=== PATIENT | female | born 1970 | race Caucasian/White ===

== ENCOUNTER 2016-06-27 22:39 | Inpatient (IN) | payer OTHER ==
--- NOTE | ~2016-06-27 | PN ---
Unit #: [id number] #: [id number] Patient: EDILSON STAUFFER [id number] [facility] [address] [place] [address] [id number] I MR#: [id number] NAME: EDILSON STAUFFER. ROOM: P132 Age: 46 Sex: F Admission Date: 06/27/2016 : 1970 Attending Physician: Monique Eason M.D. Admitting Physician: Monique Eason M.D. Primary Care Physician: Melyssa Lord PROGRESS NOTES DATE 06/30/2016 DISCUSSION Ms. Stauffer is a 46-year-old who was seen today and chart was reviewed and case was discussed with the staff. She has been anxious, withdrawn, and rather seclusive to herself. Meanwhile, she has been cooperative with treatment recommendations and has been taking medications and tolerating them fairly well with no reported side effects. MENTAL STATUS EXAMINATION Middle-aged white female who was casually dressed with fair personal hygiene and appears to be in no acute distress or discomfort. She was awake and alert on interaction with intact orientation. Her mood was anxious with congruent affect. She denies any suicidal or homicidal ideations and also denies any auditory or visual hallucinations. Her insight and judgment remain slightly impaired. TREATMENT PLAN 1. We will continue on current medications and treatment protocol and will monitor her response and make further adjustments as needed. 2. We will continue to follow up. Dictated by... Melyssa Mclean/radha TD: 07/01/2016 12:23 JOB #: [id number] Unit #: [id number] #: [id number] Patient: EDILSON STAUFFER ALEJANDRA PROGRESS NOTES X Monique Eason MD X PROGRESS NOTE
--- NOTE | ~2016-06-27 | PN ---
Unit #: [id number] #: [id number] Patient: EDILSON ECHEVERRIA [id number] [facility] [address] [place] [address] [id number] I MR#: [id number] NAME: EDILSON ECHEVERRIA ROOM: P132 Age: 46 Sex: F Admission Date: 06/27/2016 : 1970 Attending Physician: Monique Eason M.D. Admitting Physician: Monique Eason M.D. Primary Care Physician: Melyssa Lord PROGRESS NOTES DATE OF SERVICE: 07/01/2016 SUBJECTIVE Ms. Paredes is a 45-year-old white female with mood disorder, who was seen today and chart was reviewed and the case was discussed with the staff. She has been anxious and withdrawn, though has not shown any agitation, irritability, or behavioral problems and has been cooperative with the treatment recommendations as she has been taking the medications and tolerating them fairly well with no reported side effects. MENTAL STATUS EXAMINATION Middle-aged white female, who was casually dressed with fair personal hygiene, appears to be in no acute distress or discomfort. She was awake and alert on interaction with intact orientation. Her mood was anxious with a congruent affect. She denies any suicidal or homicidal ideation. Her insight and judgment remain slightly impaired. TREATMENT PLAN 1. We will continue her on her current medications and treatment protocol. We will monitor her response and make further adjustments as needed. 2. We will continue to follow up. Dictated by... Melyssa Mclean/kay TD: 07/01/2016 15:04 JOB #: [id number] [facility] PROGRESS NOTES X Monique Eason MD PROGRESS NOTE
--- NOTE | ~2016-06-27 | PA ---
Unit #: [id number] #: [id number] Patient: EDILSON ECHEVERRIA [id number] [facility] [address] [place] [address] [id number] I MR#: [id number] NAME: EDILSON ECHEVERRIA ROOM: P132 Age: 46 Sex: F Admission Date: 06/27/2016 : 1970 Date of Assessment: 06/28/2016 Attending Physician: Monique Eason M.D. Admitting Physician: Monique Eason M.D. Primary Care Physician: Deng Manuel M.D. PSYCHIATRIC ASSESSMENT DATE OF SERVICE 06/28/2016. IDENTIFYING DATA Ms. Paredes is a 46-year-old white female, who is a resident of [place], [place], and was transferred to from [facility]. CHIEF COMPLAINT "My drove me this time, I'm fighting, taking my pills." HISTORY OF PRESENT ILLNESS A 46-year-old white female, who was transferred to us from [facility], where she was taken by her . The patient stated that she has been fighting, taking her pills, "last night, I took a box in overdose, 10 pills and the night before, I took 10 of Benadryl, I just wanted to relax in peace and a break from migraines. I did not want to kill myself." She was denying any suicidal ideations and then stated "I just want peace. I take Xanax for migraines for 5 years, on disability. I have seen a [place] [facility]ist and they could no longer treat me. I went to a migraine specialist in [place] and I was told that I have to live with my illness." She does report increasing depression, anxiety, irritability, restlessness, feelings of hopelessness and helplessness, and suicidal ideations. SUBSTANCE ABUSE HISTORY The patient denies any alcohol or drug abuse, though she has been abusing her prescription medications. PAST PSYCHIATRIC HISTORY The patient has done outpatient treatment at [facility] in the past. Review of the medical records indicate that currently she is not active in any treatment program, though she is supposed to see Dr. Torres. She is taking different psychotropic medications at this time. PAST MEDICAL HISTORY Hypertension and migraine headaches. ALLERGIES No known medication allergies. PERSONAL AND SOCIAL HISTORY A 56-year-old white female, who reports that she is and lives at home with her and has fairly decent social support system. Unit #: [id number] #: [id number] Patient: EDILSON ECHEVERRIA MENTAL STATUS EXAMINATION Middle-aged white female, who was casually dressed with fair personal hygiene, appears to be in no acute distress or discomfort. She was awake and alert on interaction with intact orientation to time, place, and person. Her mood was anxious and depressed with a congruent affect. Her speech was slow and restricted in content. Her thought processes were disorganized with some looseness of associations and flight of ideas. Her insight and judgment remain significantly impaired. DIAGNOSTIC IMPRESSION Psychiatric: Major depressive disorder, recurrent, moderate, without psychotic features. Medical: Migraine headaches and seizure disorder. Stressors: Moderate psychosocial stressors. TREATMENT PLAN 1. The patient has presented with a history of mood disorder and has been decompensating. We will recommend inpatient hospitalization for safety and stabilization. We will start her back on her home medications and we will adjust the medications and monitor response. 2. Supportive therapy was provided to the patient. 3. Safe, structured, and nourishing environment will be provided. ESTIMATED LENGTH OF STAY 5 to 7 days. ABILITY TO HELP SELF Limited. WILLINGNESS TO HELP SELF The patient appears to be willing to help self. STRENGTHS 1. Communicative. 2. Cooperative. PROBLEMS 1. Chronic dysphoric symptoms. 2. Poor social support system. DISCHARGE CRITERIA This will be contingent upon the patient's ability to show resolution of her depression and anxiety and her ability to stay safe to herself, particularly after discharge from the hospital. Dictated by... Melyssa Mclean/kay TD: 06/28/2016 14:22 JOB #: [id number] Unit #: [id number] #: [id number] Patient: EDILSON ECHEVERRIA PSYCHIATRIC ASSESSMENT X Monique Eason MD PSYCHIATRIC ASSESSMENT
--- NOTE | ~2016-06-27 | DS ---
Unit #: [id number] #: [id number] Patient: EDILSON ECHEVERRIA [id number] [facility] [address] [place] [address] [id number] I MR#: [id number] NAME: EDILSON ECHEVERRIA. ROOM: 32 Age: 46 Sex: F Admission Date: 06/27/2016 : 1970 Discharge Date: 07/03/2016 Attending Physician: Monique Eason M.D. Primary Care Physician: Deng Manuel M.D. DISCHARGE SUMMARY IDENTIFYING DATA Ms. Paredes is a 46-year-old white female, who is a resident of [place], [place], and was transferred to us from [facility]. DISCHARGE DIAGNOSES Psychiatric: Major depressive disorder, recurrent, moderate, without psychotic features. Medical: Migraine headache, seizure disorder. Stressors: Moderate psychosocial stressors. HISTORY OF PRESENT ILLNESS Please see initial psychiatric evaluation for details. PAST PSYCHIATRIC HISTORY Please see initial psychiatric evaluation for details. PAST MEDICAL HISTORY Please see initial psychiatric evaluation for details. HOSPITAL COURSE The patient was [facility] and was oriented to the hospital environment. Routine p.r.n. medications were initiated, and she was started back on her home medications and medications were adjusted and Effexor and Seroquel were initiated to help with depression and she was closely monitored. She was polite and pleasant, compliant with the treatment recommendations and was taking the medications regularly and was tolerating them fairly well and was able to show a decent and therapeutic response and was willing to continue treatment on an outpatient basis and as such, it was decided that she will be discharged home and will continue treatment on an outpatient basis. DISCHARGE MEDICATIONS Seroquel 50 mg at bedtime for mood disorder and Effexor XR 150 mg at bedtime for depression. DISCHARGE CONDITION Stable. PROGNOSIS Fair. Dictated by... Unit #: [id number] #: [id number] Patient: EDILSON ECHEVERRIA Monique Eason M.D. IAA/modl TD: 07/03/2016 07:12 JOB #: [id number] DISCHARGE SUMMARY X Monique Eason MD DISCHARGE SUMMARY
--- NOTE | ~2016-06-27 | HP ---
Unit #: [id number] #: [id number] Patient: EDILSON ECHEVERRIA [id number] [place] [address] [id number] I MR#: [id number] NAME: EDILSON ECHEVERRIA. ROOM: P132 Age: 46 Sex: F Admission Date: 06/27/2016 : 1970 Attending Physician: Monique Eason M.D. Admitting Physician: Monique Eason M.D. Primary Care Physician: Deng Manuel M.D. HISTORY AND PHYSICAL HISTORY OF PRESENT ILLNESS Edilson is a 46 year old admitted to [address] [place] [address] with depression and after an overdose of Robaxin. PAST MEDICAL HISTORY 1. Obesity. 2. History of migraine headaches. 3. High blood pressure. PAST SURGICAL HISTORY 1. Cholecystectomy. 2. T and A. 3. Total abdominal hysterectomy. 4. Right arthroscopic knee. 5. Jaw surgery for severe TMJ. ALLERGIES Imitrex, Avelox, penicillin, hydrocodone, oxycodone, Medrol, tetracycline, erythromycin, Cipro, Thorazine, magnesium. SOCIAL HISTORY She does not smoke. Drinks alcohol rarely and denies illicit drug use. FAMILY HISTORY Medically noncontributory. REVIEW OF SYSTEMS CONSTITUTIONAL: No fever or chills. HEENT: Denies any sore throat, ear pain or runny nose. CARDIOVASCULAR: Denies chest pain, irregular heart rhythm or palpitations. CHEST: Denies shortness of breath or cough. No hemoptysis. GASTROINTESTINAL: Denies nausea, vomiting, diarrhea or chronic constipation. ENDOCRINE: Denies history of increased thirst or urination. No recent significant weight loss or gain. GENITOURINARY: Denies dysuria, frequency, or hematuria. SKIN: Denies any rashes. HEMATOLOGIC: Denies history of increased bleeding or bruising. MUSCULOSKELETAL: Denies any hot, swollen joints. No generalized muscle pain. NEUROLOGIC: Denies problems with vision or speech. No frequent, severe headaches. No numbness, tingling or weakness in any extremities. Denies loss of bladder or bowel control. Unit #: [id number] #: [id number] Patient: EDILSON ECHEVERRIA CURRENT MEDICATIONS 1. Aspirin 325 mg 1 daily. 2. HCTZ 12.5 mg daily. 3. Ferrous gluconate 324 one daily. 4. Lotensin 10 mg daily. 5. Seroquel 50 mg q.h.s. 6. Effexor XR 150 mg q.h.s. 7. Nadolol 40 mg b.i.d. 8. Zanaflex 2 mg t.i.d. 9. Klonopin 1 mg t.i.d. 10. Toradol p.r.n. 11. Estrace 1 mg b.i.d. PHYSICAL EXAMINATION GENERAL: Alert, obese, in no apparent distress. VITAL SIGNS: Blood pressure 138/102, heart rate 80, respirations 16, temperature 98.6. WEIGHT: 228. HEIGHT: 5 feet 1 inch. SKIN: Warm and dry without rash or lesion. HEENT: Normocephalic. TMs not viewed. Oral and nasal passages clear. Conjunctivae clear. PERRLA. EOMs intact. NECK: Supple without lymphadenopathy or thyromegaly. HEART: Regular rate and rhythm without murmur. LUNGS: Clear. ABDOMEN: Soft, nontender. : Not done. EXTREMITIES: No evidence of cyanosis, clubbing or edema. Moves all without focal deficit. NEUROLOGICAL: Grossly within normal limits. Cranial Nerves: II: Visual duong are intact. III, IV AND : Extraocular movements are intact. Pupils are equal, round and reactive to light. V: Facial sensation is grossly normal. VII: Facial movements and expression are normal. VIII: Auditory acuity grossly intact. IX, X: Uvula is midline. Phonation is normal. XI: Patient shrugs shoulders and turns head normally. XII: Tongue protrudes in the midline. Sensory and Motor Function: Sensory and motor sensation is grossly normal. Motor: moves all extremities well. Coordination: Gait is normal. Deep Tendon Reflexes: Intact. IMPRESSION 1. Psychiatric admission. 2. High blood pressure, not controlled on admission. RECOMMENDATIONS PSYCHIATRIC: Per psychiatrist. MEDICAL: 1. See no contraindications to participate in facility's activities. 2. Continue blood pressure medications. Continue to monitor blood pressures. MEDICAL PROGNOSIS Good. MEDICAL CONDITION Unit #: [id number] #: [id number] Patient: EDILSON ECHEVERRIA. Dictated by... Sydney Euceda P.A.-C. for Melyssa Ash/farhat TD: 06/28/2016 18:55 JOB #: [id number] HISTORY AND PHYSICAL X Sydney Euceda HISTORY AND PHYSICAL
--- NOTE | ~2016-06-27 | PN ---
Unit #: [id number] #: [id number] Patient: EDILSON STAUFFER [id number] [facility] [address] [place] [address] [id number] I MR#: [id number] NAME: EDILSON STAUFFER. ROOM: P132 Age: 46 Sex: F Admission Date: 06/27/2016 : 1970 Attending Physician: Monique Eason M.D. Admitting Physician: Monique Eason M.D. Primary Care Physician: Melyssa Lord PROGRESS NOTES DATE 06/29/2016 DISCUSSION Ms. Stauffer is a 46-year-old white female with mood disorder who was seen today and chart was reviewed and case was discussed with the staff. She has been anxious, withdrawn, depressed and rather seclusive to herself. Meanwhile, she has been cooperative with treatment recommendations and has been taking medications and tolerating them fairly well with no reported side effects. MENTAL STATUS EXAMINATION Middle-aged white female who was casually dressed with fair personal hygiene and appears to be in no acute distress or discomfort. She was awake and alert on interaction with intact orientation. Her mood was anxious and depressed with congruent affect. Her speech is slow and goal-directed. She denies any suicidal or homicidal ideations and also denies any auditory or visual hallucinations. Her insight and judgement remain slightly impaired. TREATMENT PLAN 1. Will continue on current medications and treatment protocol and will monitor her response and make further adjustments as needed. 2. Will continue to follow up. Dictated by... Melyssa Mclean/farhat TD: 06/30/2016 13:34 JOB #: [id number] Unit #: [id number] #: [id number] Patient: EDILSON STAUFFER ALEJANDRA PROGRESS NOTES X Monique Eason MD PROGRESS NOTE
--- NOTE | ~2016-06-27 | PN ---
Unit #: [id number] #: [id number] Patient: EDILSON STAUFFER [id number] [facility] [address] [place] [address] [id number] I MR#: [id number] NAME: EDILSON STAUFFER. ROOM: P132 Age: 46 Sex: F Admission Date: 06/27/2016 : 1970 Attending Physician: Monique Eason M.D. Admitting Physician: Monique Eason M.D. Primary Care Physician: Melyssa Lord PROGRESS NOTES DATE July 02, 2016 DISCUSSION Ms. Stauffer is a 46-year-old white female, who was seen today and chart was reviewed and the case was discussed with the staff. The patient has been anxious, withdrawn, and seclusive to herself. Meanwhile, she has been cooperative with the treatment recommendations and she has been taking the medications and tolerating them fairly well. MENTAL STATUS EXAMINATION Middle-aged white female, who was casually dressed with fair personal hygiene and appears to be in no acute distress or discomfort. She was awake and alert on interaction with intact orientation. Her mood was anxious with a congruent affect. The patient denies any suicidal or homicidal ideations. Her insight and judgment remain slightly impaired. TREATMENT PLAN 1. We will continue her on her current medications and treatment protocol, and will monitor her response to the medications, and make further adjustments as needed. 2. We will continue to followup. Dictated by... Melyssa Mclean/flori TD: 07/03/2016 06:55 JOB #: [id number] Unit #: [id number] #: [id number] Patient: EDILSON STAUFFER ALEJANDRA PROGRESS NOTES X Monique Eason MD X PROGRESS NOTE
[~2016-06-27 22:39] MED LIST: ALLEGRA PO; AMLODIPINE BESYL5 MG PO; ANTIVERT PO; ASPIRIN PO; CALCIUM 250+D T1 TAB PO; CALCIUM 500 + D1 TAB PO; CELEXA PO; CYMBALTA30 MG PO; ESTRACE PO; ESTRACE2 MG PO; FISH OIL 1,0001 CAP PO; GYNODIOL1 MG PO; LEXAPRO20 MG PO; LIPITOR40 MG PO; LISINOPRIL PO; LOTENSIN20 MG PO; MAXALT MLT10 MG/TAB PO; METAMUCIL1 PKT PO; MOTION SICKNESS25 M4 PO; MUCINEX DM1 TAB.SR . PO; MULTI-VITAMIN1 TAB PO; NORVASC PO; PERCOCET 7.5-31 EACH PO; PHENERGAN PO; PRILOSEC PO; TALWIN NX TABLE1 TAB PO; TYLOX1 CAP 5/50 PO; VIT E PO
[2016-06-28 09:49] LABS: BASOPHIL% 0.5 % (0-2.5); EOSINOPHIL# 0.7 X10e3 (0-0.7); EOSINOPHIL% 6.9 % (0.0-7.0); HEMATOCRIT 36.3 % (35.0-45.0); HEMOGLOBIN 11.9 gm/dL (12.0-16.0); LYMPHOCYTE# 3.9 X10e3 (1.0-3.5); LYMPHOCYTE% 38.9 % (17.0-45.0); MEAN CELL VOLUME 84.1 FL (83-96); MEAN CORPUSCULAR HEMOGLOBIN 27.7 PG (28-34); MEAN CORPUSCULAR HGB CONC 32.9 g/dL (30-36); MEAN PLATELET VOLUME 8.4 FL (6.5-11.5); MONOCYTE# 0.6 X10e3 (0-1.0); MONOCYTE% 6.5 % (3.0-12.0); NEUTROPHIL# 4.7 X10e3 (1.5-7.1); NEUTROPHIL% 47.2 % (40-75); PLATELET COUNT 290 X10e3 (140-420); RED BLOOD COUNT 4.32 X10e (3.90-5.30); RED CELL DISTRIBUTION WIDTH 14.9 % (11.0-15.5); WHITE BLOOD COUNT 9.9 X10e3 (4.0-10.5)
[2016-06-28 09:57] LABS: DIFF IND NO
[2016-06-28 10:09] LABS: ALBUMIN SERUM 3.6 g/dL (3.5-5.0); ALKALINE PHOSPHATASE 83 U/L (32-92); ALT (SGPT) 28 U/L (10-40); AST (SGOT) 28 U/L (10-42); BILIRUBIN,TOTAL 0.1 mg/dL (0.2-2.0); BLOOD UREA NITROGEN 17 mg/dL (9-23); BUN/CREATININE RATIO 24.28; CALCIUM SERUM 9.4 mg/dL (8.4-10.2); CARBON DIOXIDE 24 mmol/L (22-31); CHLORIDE 100 mmol/L (100-111); CREATININE SERUM 0.7 mg/dL (0.6-1.4); GLOM FILT RATE Estimated ABOVE60 mL/min (>60); GLUCOSE FASTING 109 mg/dL (70-110); POTASSIUM 4.3 mmol/L (3.5-5.1); PROTEIN TOTAL SERUM 7.3 g/dL (6.0-8.3); SODIUM 134 mmol/L (135-145)
== END 2016-07-03 11:42 | disposition home or self-care (01) | DRG 885 ==
LOC: P1S 22:39 → POF 07-02 14:24 → P1S 07-02 14:26
PROVIDERS: Psychiatry & Neurology Psychiatry
DX: F33.1 Major depressive disorder, recurrent, moderate (principal); G40.909 Epilepsy, unspecified, not intractable, without status epilepticus; I10 Essential (primary) hypertension; G43.909 Migraine, unspecified, not intractable, without status migrainosus; F41.9 Anxiety disorder, unspecified; E66.9 Obesity, unspecified; Z88.6 Allergy status to analgesic agent; Z88.0 Allergy status to penicillin; Z88.5 Allergy status to narcotic agent; Z88.1 Allergy status to other antibiotic agents; Z88.8 Allergy status to other drugs, medicaments and biological substances
CPT/HCPCS: 80053; 85025

== ENCOUNTER 2016-08-03 16:55 | Emergency (ER) | payer OTHER ==
[~2016-08-03 16:55] MED LIST changes: -CLIMARA 0.1 MG0.1 MG PO; -COQ-1010 MG PO; -DIVALPROEX SOD500 M1 IV; -EFFEXOR PO; -ESTRACE1 M1 PO; -FERRO-TIME325 MG PO; -HYDROCHLOROTH12.5 M1 PO; -IRON325 MG PO; -KETOROLAC15 MG/1 ML; -KLONOPIN1 M1 PO; -KLONOPIN1 MG PO; -LEVETIRACETAM500 M1 IV; -MAGNESIUM OXID200 MG PO; -MAGNESIUM27 MG PO; -MULTIVITAMINS1 EAC3 PO; -NADOLOL40 MG PO; -OXCARBAZEPINE150 M1 PO; -PANTOPRAZOLE SO40 MG PO; -PATIENT'S PHARMACY; -ROBAXIN PO; -ROBAXIN500 MG PO; -SEROQUEL50 M1 PO; -VENLAFAXINE HC150 MG PO; -VITAMIN B122500 MCG PO; -ZANAFLEX PO
== END 2016-08-03 20:15 | disposition home or self-care (01) ==
LOC: CED 16:55
DX: G43.909 Migraine, unspecified, not intractable, without status migrainosus (principal); G89.29 Other chronic pain; I10 Essential (primary) hypertension; Z90.49 Acquired absence of other specified parts of digestive tract; Z90.710 Acquired absence of both cervix and uterus
CPT/HCPCS: 82947; 96361; 96374; 96375; 99284; J0780; J1170; J1200; J1885

== ENCOUNTER → 2016-08-03 | Outpatient (CLI) | payer OTHER ==
[~2016-08-03] MED LIST changes: +CLIMARA 0.1 MG0.1 MG PO; +COQ-1010 MG PO; +DIVALPROEX SOD500 M1 IV; +EFFEXOR PO; +ESTRACE1 M1 PO; +FERRO-TIME325 MG PO; +HYDROCHLOROTH12.5 M1 PO; +IRON325 MG PO; +KETOROLAC15 MG/1 ML; +KLONOPIN1 M1 PO; +KLONOPIN1 MG PO; +LEVETIRACETAM500 M1 IV; +MAGNESIUM OXID200 MG PO; +MAGNESIUM27 MG PO; +MULTIVITAMINS1 EAC3 PO; +NADOLOL40 MG PO; +OXCARBAZEPINE150 M1 PO; +PANTOPRAZOLE SO40 MG PO; +PATIENT'S PHARMACY; +ROBAXIN PO; +ROBAXIN500 MG PO; +SEROQUEL50 M1 PO; +VENLAFAXINE HC150 MG PO; +VITAMIN B122500 MCG PO; +ZANAFLEX PO
== END | disposition home or self-care (01) ==
LOC: CSSDAY 15:12
PROC: 3C1ZX8Z Irrigation of Indwelling Device using Irrigating Substance, External Approach (ICD-10-PCS; principal; 2016-08-03)
DX: Z45.2 Encounter for adjustment and management of vascular access device (principal)

== ENCOUNTER 2016-08-08 16:51 | Emergency (ER) | payer OTHER ==
--- NOTE | ~2016-08-08 | EKG ---
PATIENT: EDILSON ECHEVERRIA UNIT #: [id number] Ventricular Rate: 55 BPM Atrial Rate: 55 BPM P-R Interval: 130 ms QRS Duration: 86 ms Q-T Interval: 450 ms QTC Calculation(Bezet): 430 ms P [place]: 10 degrees Calculated R [place]: 48 degrees Calculated T [place]: 59 degrees Diagnosis Line: Sinus bradycardia Diagnosis Line: Otherwise normal ECG Diagnosis Line: When compared with ECG of 05-AUG-2011 07:13, Diagnosis Line: No significant change was found Diagnosis Line: Confirmed by BENNETT JARRELL MD ([id number]) on 08/09/2016 Diagnosis Line: 5:02:40 AM INTERPRETING MD: WESLY MOLINA
[2016-08-08 15:47] LABS: URINE SOURCE CLEAN CATCH
[2016-08-08 15:51] LABS: URINE APPEARANCE CLEAR; URINE BILIRUBIN NEG (NEG); URINE BLOOD NEG (NEG); URINE COLOR YELLOW; URINE GLUCOSE NEG (NEG); URINE KETONE TRACE (NEG); URINE LEUKOCYTE ESTERASE NEG (NEG); URINE NITRATE NEG (NEG); URINE PROTEIN NEG (NEG); URINE SPECIFIC GRAVITY 1.016 (1.003-1.035)
[2016-08-08 16:01] LABS: BASOPHIL% 0.5 % (0-2.5); EOSINOPHIL# 0.9 X10e3 (0-0.7); EOSINOPHIL% 9.7 % (0.0-7.0); HEMATOCRIT 32.9 % (35.0-45.0); HEMOGLOBIN 10.9 gm/dL (12.0-16.0); LYMPHOCYTE# 3.7 X10e3 (1.0-3.5); LYMPHOCYTE% 39.2 % (17.0-45.0); MEAN CELL VOLUME 83.8 FL (83-96); MEAN CORPUSCULAR HEMOGLOBIN 27.7 PG (28-34); MEAN CORPUSCULAR HGB CONC 33.1 g/dL (30-36); MEAN PLATELET VOLUME 8.1 FL (6.5-11.5); MONOCYTE# 0.7 X10e3 (0-1.0); MONOCYTE% 6.8 % (3.0-12.0); NEUTROPHIL# 4.2 X10e3 (1.5-7.1); NEUTROPHIL% 43.8 % (40-75); PLATELET COUNT 241 X10e3 (140-420); RED BLOOD COUNT 3.93 X10e (3.90-5.30); RED CELL DISTRIBUTION WIDTH 14.7 % (11.0-15.5); WHITE BLOOD COUNT 9.6 X10e3 (4.0-10.5)
[2016-08-08 16:06] LABS: POC - CKMB <1.0 ng/mL (0.0-7.9); POC - TROPONIN <0.05 ng/mL (<=0.05)
[2016-08-08 16:09] LABS: DIFF IND NO
[2016-08-08 16:19] LABS: CULTURE INDICATED? NO
[2016-08-08 16:23] LABS: CALCIUM SERUM 8.8 mg/dL (8.4-10.2); POTASSIUM 3.6 mmol/L (3.5-5.1)
== END 2016-08-08 18:18 | disposition home or self-care (01) ==
LOC: CED 16:51
PROVIDERS: Emergency Medicine
DX: G43.909 Migraine, unspecified, not intractable, without status migrainosus (principal); I10 Essential (primary) hypertension; Z86.73 Personal history of transient ischemic attack (TIA), and cerebral infarction without residual deficits; Z90.710 Acquired absence of both cervix and uterus; Z90.49 Acquired absence of other specified parts of digestive tract; Z88.0 Allergy status to penicillin; Z88.1 Allergy status to other antibiotic agents; Z88.5 Allergy status to narcotic agent; Z88.8 Allergy status to other drugs, medicaments and biological substances
CPT/HCPCS: 36415; 80048; 81003; 82553; 84484; 84703; 85025; 93005; 96361; 96374; 96375; 99284; J0595; J0780; J1200; J1885

== ENCOUNTER 2016-08-09 17:24 | Emergency (ER) | payer OTHER ==
--- NOTE | ~2016-08-09 | CR230 ---
[facility] A Service of [facility] RADIOLOGY TEXT RESULTS PATIENT: EDILSON ECHEVERRIA LOCATION: [facility] : 72 UNIT #: [id number] AGE: [address]: Martha Terrazas MD SEX: F ORDER DR: [id number] [facility] [address] [place], [place] [address] [id number] E MR#: [id number] Acc #: [id number] NAME: EDILSON ECHEVERRIA. : 1970 SEX: F STUDY DATE/TIME: 08/09/2016 17:52 UNIT: [facility] ROOM: STUDY DESCRIPTION: CR Shoulder Min 2 View Rt Attending Physician: Martha Terrazas M.D. Referring Physician: Deng Manuel M.D. Ordering Physician: Martha Terrazas M.D. Primary Care Physician: Deng Manuel M.D. MEDICAL IMAGING REPORT This report is preliminary unless electronic signature is present EXAM 3 views of the right shoulder INDICATIONS Pain after a fall today FINDINGS AP view with internal and external rotation of the shoulder girdle shows satisfactory relationship of the humeral head and glenoid fossa. The joint space is normal. There is no identifiable fracture or dislocation or bony destructive process about the shoulder girdle anatomy. The acromioclavicular joint is normal. There is no radiopaque foreign body in the region. IMPRESSION Normal shoulder. Dictated by... Chary Mobley M.D. THIS IS AN ELECTRONICALLY VERIFIED REPORT Chary Mobley M.D. at 08/10/2016 4:40 PM AFF/to TD: 08/09/2016 19:26 JOB #: [id number] MEDICAL IMAGING REPORT Page 1 of 1 COPY
--- NOTE | ~2016-08-09 | CR71 ---
[facility] A Service of [facility] RADIOLOGY TEXT RESULTS PATIENT: EDILSON ECHEVERRIA LOCATION: [facility] : 72 UNIT #: [id number] AGE: [address]: Martha Terrazas MD SEX: F ORDER DR: [id number] [facility] [address] [place], [place] [address] [id number] E MR#: [id number] Acc #: [id number] NAME: EDILSON ECHEVERRIA. : 1970 SEX: F STUDY DATE/TIME: 08/09/2016 17:50 UNIT: [facility] ROOM: STUDY DESCRIPTION: CR Chest Single View Attending Physician: Martha Terrazas M.D. Referring Physician: Deng Manuel M.D. Ordering Physician: Martha Terrazas M.D. Primary Care Physician: Deng Manuel M.D. MEDICAL IMAGING REPORT This report is preliminary unless electronic signature is present EXAM Portable chest radiograph INDICATIONS Syncope, dizziness and pain after a fall today FINDINGS Right internal jugular vein MediPort is seen extending into the superior vena cava. Heart size is within normal limits for portable technique. No pneumothorax or pleural effusion is identified. Patient does have some elevation of the right hemidiaphragm with some associated bronchovascular crowding which is stable when compared to April 2014. No definite acute infiltrates are seen Dictated by... Chary Mobley M.D. THIS IS AN ELECTRONICALLY VERIFIED REPORT Chary Mobley M.D. at 08/10/2016 4:41 PM AFF/to TD: 08/09/2016 19:23 JOB #: [id number] MEDICAL IMAGING REPORT Page 1 of 1 COPY
--- NOTE | ~2016-08-09 | CR151 ---
[facility] A Service of [facility] RADIOLOGY TEXT RESULTS PATIENT: EDILSON ECHEVERRIA LOCATION: [facility] : 72 UNIT #: [id number] AGE: [address]: Martha Terrazas MD SEX: F ORDER DR: [id number] [facility] [address] [place], [place] [address] [id number] MR#: [id number] Acc #: [id number] NAME: EDILSON ECHEVERRIA. : 1970 SEX: F STUDY DATE/TIME: 08/09/2016 17:56 UNIT: [facility] ROOM: STUDY DESCRIPTION: CR Hip Min 2 Views Rt Attending Physician: Martha Terrazas M.D. Referring Physician: Deng Manuel M.D. Ordering Physician: Martha Terrazas M.D. Primary Care Physician: Deng Manuel M.D. MEDICAL IMAGING REPORT This report is preliminary unless electronic signature is present EXAM 2 views right hip. INDICATION Pain after a fall today. FINDINGS No acute fracture or subluxation of the right hip is identified. No aggressive osseous abnormalities are seen. Patient does have some degenerative changes involving sacroiliac joints bilaterally. IMPRESSION No acute fracture or subluxation identified. Dictated by... Chary Mobley M.D. THIS IS AN ELECTRONICALLY VERIFIED REPORT Chary Mobley M.D. at 08/10/2016 4:41 PM AFF/js TD: 08/09/2016 19:26 JOB #: [id number] MEDICAL IMAGING REPORT Page 1 of 1 COPY
== END 2016-08-09 19:10 | disposition home or self-care (01) ==
LOC: CED 17:24
DX: G89.29 Other chronic pain (principal); I10 Essential (primary) hypertension; R51 Headache; Z76.5 Malingerer [conscious simulation]; Z88.8 Allergy status to other drugs, medicaments and biological substances; Z88.0 Allergy status to penicillin; Z88.5 Allergy status to narcotic agent; Z88.1 Allergy status to other antibiotic agents
CPT/HCPCS: 71010; 73030; 73502; 99284

== ENCOUNTER 2016-08-15 19:31 | Emergency (ER) | payer OTHER ==
--- NOTE | ~2016-08-15 | EKG ---
PATIENT: EDILSON ECHEVERRIA UNIT #: [id number] Ventricular Rate: 66 BPM Atrial Rate: 66 BPM P-R Interval: 140 ms QRS Duration: 92 ms Q-T Interval: 416 ms QTC Calculation(Bezet): 436 ms P [place]: -12 degrees Calculated R [place]: 32 degrees Calculated T [place]: 54 degrees Diagnosis Line: Normal sinus rhythm Diagnosis Line: Nonspecific T wave abnormality Diagnosis Line: Abnormal ECG Diagnosis Line: When compared with ECG of 08-AUG-2016 15:22, Diagnosis Line: Inverted T waves have replaced nonspecific T wave Diagnosis Line: abnormality in Anterior leads Diagnosis Line: Confirmed by BENNETT JARRELL MD ([id number]) on 08/15/2016 Diagnosis Line: 10:50:19 PM INTERPRETING MD: WESLY MOLINA
[2016-08-15 19:52] LABS: POC - CKMB <1.0 ng/mL (0.0-7.9); POC - TROPONIN <0.05 ng/mL (<=0.05)
[2016-08-15 19:57] LABS: BASOPHIL# 0.1 X10e3 (0-0.3); BASOPHIL% 0.5 % (0-2.5); EOSINOPHIL# 0.5 X10e3 (0-0.7); EOSINOPHIL% 4.6 % (0.0-7.0); HEMATOCRIT 32.7 % (35.0-45.0); HEMOGLOBIN 10.8 gm/dL (12.0-16.0); LYMPHOCYTE# 4.1 X10e3 (1.0-3.5); LYMPHOCYTE% 36.2 % (17.0-45.0); MEAN CELL VOLUME 84.3 FL (83-96); MEAN CORPUSCULAR HEMOGLOBIN 27.7 PG (28-34); MEAN CORPUSCULAR HGB CONC 32.9 g/dL (30-36); MEAN PLATELET VOLUME 7.6 FL (6.5-11.5); MONOCYTE# 1.1 X10e3 (0-1.0); NEUTROPHIL# 5.5 X10e3 (1.5-7.1); NEUTROPHIL% 48.7 % (40-75); PLATELET COUNT 272 X10e3 (140-420); RED BLOOD COUNT 3.88 X10e (3.90-5.30); RED CELL DISTRIBUTION WIDTH 14.8 % (11.0-15.5); WHITE BLOOD COUNT 11.3 X10e3 (4.0-10.5)
[2016-08-15 19:58] LABS: DIFF IND NO
[2016-08-15 20:14] LABS: ALBUMIN SERUM 3.1 g/dL (3.5-5.0); ALKALINE PHOSPHATASE 63 U/L (32-92); ALT (SGPT) 16 U/L (10-40); AST (SGOT) 17 U/L (10-42); BILIRUBIN,TOTAL 0.2 mg/dL (0.2-2.0); BLOOD UREA NITROGEN 16 mg/dL (9-23); CARBON DIOXIDE 26 mmol/L (22-31); CHLORIDE 105 mmol/L (100-111); CREATININE SERUM 0.8 mg/dL (0.6-1.4); GLOM FILT RATE Estimated 89.1 mL/min (>60); GLUCOSE FASTING 108 mg/dL (70-110); POTASSIUM 3.6 mmol/L (3.5-5.1); PROTEIN TOTAL SERUM 6.5 g/dL (6.0-8.3); SODIUM 138 mmol/L (135-145)
[2016-08-15 20:17] LABS: BILIRUBIN, DIRECT <0.1 mg/dL (0.0-0.2); BILIRUBIN,INDIRECT 0.1 mg/dL (0.0-0.9)
[2016-08-15 21:37] LABS: POC - CKMB <1.0 ng/mL (0.0-7.9); POC - TROPONIN <0.05 ng/mL (<=0.05)
== END 2016-08-15 22:13 | disposition home or self-care (01) ==
LOC: CED 19:31
PROVIDERS: Emergency Medicine
DX: I10 Essential (primary) hypertension (principal); R07.9 Chest pain, unspecified; G43.909 Migraine, unspecified, not intractable, without status migrainosus; Z88.0 Allergy status to penicillin; Z88.8 Allergy status to other drugs, medicaments and biological substances
CPT/HCPCS: 80048; 80076; 82553; 84484; 85025; 93005; 96374; 96375; 99284; J0780; J1200; J1885

== ENCOUNTER → 2016-08-16 | Outpatient (CLI) | payer OTHER ==
[~2016-08-16] MED LIST changes: +CLIMARA 0.1 MG0.1 MG PO; +COQ-1010 MG PO; +DIVALPROEX SOD500 M1 IV; +EFFEXOR PO; +ESTRACE1 M1 PO; +FERRO-TIME325 MG PO; +HYDROCHLOROTH12.5 M1 PO; +IRON325 MG PO; +KETOROLAC15 MG/1 ML; +KLONOPIN1 M1 PO; +KLONOPIN1 MG PO; +LEVETIRACETAM500 M1 IV; +MAGNESIUM OXID200 MG PO; +MAGNESIUM27 MG PO; +MULTIVITAMINS1 EAC3 PO; +NADOLOL40 MG PO; +OXCARBAZEPINE150 M1 PO; +PANTOPRAZOLE SO40 MG PO; +PATIENT'S PHARMACY; +ROBAXIN PO; +ROBAXIN500 MG PO; +SEROQUEL50 M1 PO; +VENLAFAXINE HC150 MG PO; +VITAMIN B122500 MCG PO; +ZANAFLEX PO
== END | disposition home or self-care (01) ==
LOC: CSSDAY 15:49
PROC: 3C1ZX8Z Irrigation of Indwelling Device using Irrigating Substance, External Approach (ICD-10-PCS; principal; 2016-08-16)
DX: Z45.2 Encounter for adjustment and management of vascular access device (principal)

== ENCOUNTER 2016-08-18 23:59 | Emergency (ER) | payer OTHER ==
[~2016-08-18 23:59] MED LIST changes: -CLIMARA 0.1 MG0.1 MG PO; -COQ-1010 MG PO; -DIVALPROEX SOD500 M1 IV; -EFFEXOR PO; -ESTRACE1 M1 PO; -FERRO-TIME325 MG PO; -HYDROCHLOROTH12.5 M1 PO; -IRON325 MG PO; -KETOROLAC15 MG/1 ML; -KLONOPIN1 M1 PO; -KLONOPIN1 MG PO; -LEVETIRACETAM500 M1 IV; -MAGNESIUM OXID200 MG PO; -MAGNESIUM27 MG PO; -MULTIVITAMINS1 EAC3 PO; -NADOLOL40 MG PO; -OXCARBAZEPINE150 M1 PO; -PANTOPRAZOLE SO40 MG PO; -PATIENT'S PHARMACY; -ROBAXIN PO; -ROBAXIN500 MG PO; -SEROQUEL50 M1 PO; -VENLAFAXINE HC150 MG PO; -VITAMIN B122500 MCG PO; -ZANAFLEX PO
== END 2016-08-19 05:10 | disposition home or self-care (01) ==
LOC: CED 23:59
DX: G44.229 Chronic tension-type headache, not intractable (principal); Z88.0 Allergy status to penicillin; Z88.5 Allergy status to narcotic agent; Z88.1 Allergy status to other antibiotic agents
CPT/HCPCS: 96361; 96374; 96375; 99284; J1100; J1200; J1885; J2765

== ENCOUNTER → 2016-08-23 | Outpatient (CLI) | payer OTHER ==
[~2016-08-23] MED LIST changes: +CLIMARA 0.1 MG0.1 MG PO; +COQ-1010 MG PO; +DIVALPROEX SOD500 M1 IV; +EFFEXOR PO; +ESTRACE1 M1 PO; +FERRO-TIME325 MG PO; +HYDROCHLOROTH12.5 M1 PO; +IRON325 MG PO; +KETOROLAC15 MG/1 ML; +KLONOPIN1 M1 PO; +KLONOPIN1 MG PO; +LEVETIRACETAM500 M1 IV; +MAGNESIUM OXID200 MG PO; +MAGNESIUM27 MG PO; +MULTIVITAMINS1 EAC3 PO; +NADOLOL40 MG PO; +OXCARBAZEPINE150 M1 PO; +PANTOPRAZOLE SO40 MG PO; +PATIENT'S PHARMACY; +ROBAXIN PO; +ROBAXIN500 MG PO; +SEROQUEL50 M1 PO; +VENLAFAXINE HC150 MG PO; +VITAMIN B122500 MCG PO; +ZANAFLEX PO
== END | disposition home or self-care (01) ==
LOC: CSSDAY 15:29
PROC: 3C1ZX8Z Irrigation of Indwelling Device using Irrigating Substance, External Approach (ICD-10-PCS; principal; 2016-08-23)
DX: Z45.2 Encounter for adjustment and management of vascular access device (principal)
CPT/HCPCS: J1642

== ENCOUNTER 2016-08-29 19:04 | Emergency (ER) | payer OTHER ==
[~2016-08-29 19:04] MED LIST changes: -CLIMARA 0.1 MG0.1 MG PO; -COQ-1010 MG PO; -DIVALPROEX SOD500 M1 IV; -EFFEXOR PO; -ESTRACE1 M1 PO; -FERRO-TIME325 MG PO; -HYDROCHLOROTH12.5 M1 PO; -IRON325 MG PO; -KETOROLAC15 MG/1 ML; -KLONOPIN1 M1 PO; -KLONOPIN1 MG PO; -LEVETIRACETAM500 M1 IV; -MAGNESIUM OXID200 MG PO; -MAGNESIUM27 MG PO; -MULTIVITAMINS1 EAC3 PO; -NADOLOL40 MG PO; -OXCARBAZEPINE150 M1 PO; -PANTOPRAZOLE SO40 MG PO; -PATIENT'S PHARMACY; -ROBAXIN PO; -ROBAXIN500 MG PO; -SEROQUEL50 M1 PO; -VENLAFAXINE HC150 MG PO; -VITAMIN B122500 MCG PO; -ZANAFLEX PO
== END 2016-08-29 22:17 | disposition home or self-care (01) ==
LOC: CED 19:04
DX: R51 Headache (principal); F41.9 Anxiety disorder, unspecified; I10 Essential (primary) hypertension; G43.909 Migraine, unspecified, not intractable, without status migrainosus; K21.9 Gastro-esophageal reflux disease without esophagitis; Z90.49 Acquired absence of other specified parts of digestive tract; Z98.890 Other specified postprocedural states
CPT/HCPCS: 96374; 96375; 96376; 99284; J1170; J1200; J1642; J2765

== ENCOUNTER → 2016-08-30 | Outpatient (CLI) | payer OTHER ==
[~2016-08-30] MED LIST changes: +CLIMARA 0.1 MG0.1 MG PO; +COQ-1010 MG PO; +DIVALPROEX SOD500 M1 IV; +EFFEXOR PO; +ESTRACE1 M1 PO; +FERRO-TIME325 MG PO; +HYDROCHLOROTH12.5 M1 PO; +IRON325 MG PO; +KETOROLAC15 MG/1 ML; +KLONOPIN1 M1 PO; +KLONOPIN1 MG PO; +LEVETIRACETAM500 M1 IV; +MAGNESIUM OXID200 MG PO; +MAGNESIUM27 MG PO; +MULTIVITAMINS1 EAC3 PO; +NADOLOL40 MG PO; +OXCARBAZEPINE150 M1 PO; +PANTOPRAZOLE SO40 MG PO; +PATIENT'S PHARMACY; +ROBAXIN PO; +ROBAXIN500 MG PO; +SEROQUEL50 M1 PO; +VENLAFAXINE HC150 MG PO; +VITAMIN B122500 MCG PO; +ZANAFLEX PO
== END | disposition home or self-care (01) ==
LOC: CSSDAY 10:00
PROC: 3C1ZX8Z Irrigation of Indwelling Device using Irrigating Substance, External Approach (ICD-10-PCS; principal; 2016-08-30)
DX: Z45.2 Encounter for adjustment and management of vascular access device (principal)
CPT/HCPCS: G0463

== ENCOUNTER 2016-09-03 15:28 | Emergency (ER) | payer OTHER ==
--- NOTE | ~2016-09-03 | MR18 ---
[facility] A Service of [facility] & [facility] RADIOLOGY TEXT RESULTS PATIENT: EDILSON ECHEVERRIA LOCATION: [facility] : 71 UNIT #: [id number] AGE: [address]: Justin Espino MD SEX: F ORDER DR: [id number] [facility] [address] [place], [place] [address] [id number] E MR#: [id number] Acc #: [id number] NAME: EDILSON ECHEVERRIA. : 1970 SEX: F STUDY DATE/TIME: 09/03/2016 18:22 UNIT: [facility] ROOM: STUDY DESCRIPTION: MR Brain Wo Contrast Attending Physician: Daniel Espino M.D. Ordering Physician: Christoph Norman D.O. Primary Care Physician: Deng Manuel M.D. MRI CENTER REPORT This report is preliminary unless electronic signature is present. EXAM MRI of the brain without contrast INDICATIONS Dizziness, migraines, light sensitivity, unable to walk for 3 days. TECHNIQUE Multisequence, multiplanar MR imaging of the brain was performed without contrast and compared with 06/26/2011. FINDINGS There is no evidence of restricted diffusion to suggest acute infarct. There is no focal mass lesion or hydrocephalus. There is no mass effect or midline shift. There is no extraaxial fluid collection. The included orbits and paranasal sinuses are unremarkable. IMPRESSION Negative noncontrast brain MRI. Dictated by... Genaro Spencer M.D. THIS IS AN ELECTRONICALLY VERIFIED REPORT Genaro Spencer M.D. at 09/05/2016 7:26 AM ARS/brayden TD: 09/04/2016 00:25 JOB #: [id number] MRI CENTER REPORT Page 1 of 1 COPY
[~2016-09-03 15:28] MED LIST changes: -CLIMARA 0.1 MG0.1 MG PO; -COQ-1010 MG PO; -DIVALPROEX SOD500 M1 IV; -EFFEXOR PO; -ESTRACE1 M1 PO; -FERRO-TIME325 MG PO; -HYDROCHLOROTH12.5 M1 PO; -IRON325 MG PO; -KETOROLAC15 MG/1 ML; -KLONOPIN1 M1 PO; -KLONOPIN1 MG PO; -LEVETIRACETAM500 M1 IV; -MAGNESIUM OXID200 MG PO; -MAGNESIUM27 MG PO; -MULTIVITAMINS1 EAC3 PO; -NADOLOL40 MG PO; -OXCARBAZEPINE150 M1 PO; -PANTOPRAZOLE SO40 MG PO; -PATIENT'S PHARMACY; -ROBAXIN PO; -ROBAXIN500 MG PO; -SEROQUEL50 M1 PO; -VENLAFAXINE HC150 MG PO; -VITAMIN B122500 MCG PO; -ZANAFLEX PO
[2016-09-03 17:04] LABS: BASOPHIL# 0.1 X10e3 (0-0.3); BASOPHIL% 0.8 % (0-2.5); EOSINOPHIL# 0.6 X10e3 (0-0.7); EOSINOPHIL% 4.7 % (0.0-7.0); HEMATOCRIT 33.7 % (35.0-45.0); HEMOGLOBIN 10.9 gm/dL (12.0-16.0); LYMPHOCYTE% 33.4 % (17.0-45.0); MEAN CELL VOLUME 85.7 FL (83-96); MEAN CORPUSCULAR HEMOGLOBIN 27.7 PG (28-34); MEAN CORPUSCULAR HGB CONC 32.3 g/dL (30-36); MEAN PLATELET VOLUME 7.9 FL (6.5-11.5); MONOCYTE% 8.6 % (3.0-12.0); NEUTROPHIL# 6.3 X10e3 (1.5-7.1); NEUTROPHIL% 52.5 % (40-75); PLATELET COUNT 193 X10e3 (140-420); RED BLOOD COUNT 3.93 X10e (3.90-5.30); RED CELL DISTRIBUTION WIDTH 14.3 % (11.0-15.5); WHITE BLOOD COUNT 12.1 X10e3 (4.0-10.5)
[2016-09-03 17:05] LABS: DIFF IND NO
[2016-09-03 17:21] LABS: PARTIAL THROMBOPLASTIN TIME 23.5 SECONDS (23.5-31.3)
[2016-09-03 17:29] LABS: ALKALINE PHOSPHATASE 57 U/L (32-92); ALT (SGPT) 20 U/L (10-40); AST (SGOT) 16 U/L (10-42); BILIRUBIN,TOTAL 0.5 mg/dL (0.2-2.0); BLOOD UREA NITROGEN 19 mg/dL (9-23); BUN/CREATININE RATIO 23.75; CARBON DIOXIDE 27 mmol/L (22-31); CHLORIDE 102 mmol/L (100-111); CREATININE SERUM 0.8 mg/dL (0.6-1.4); GLOM FILT RATE Estimated 89.1 mL/min (>60); GLUCOSE FASTING 103 mg/dL (70-110); PROTEIN TOTAL SERUM 6.3 g/dL (6.0-8.3); SODIUM 135 mmol/L (135-145)
[2016-09-03 17:32] LABS: BILIRUBIN, DIRECT <0.1 mg/dL (0.0-0.2); BILIRUBIN,INDIRECT 0.4 mg/dL (0.0-0.9); DEPAKENE (VALPROIC ACID) 52 ug/mL (50-125)
[2016-09-03 17:33] LABS: DILANTIN (PHENYTOIN) <2.5 ug/mL (10.0-20.0)
[2016-09-03 17:53] LABS: URINE SOURCE CLEAN CATCH
[2016-09-03 18:04] LABS: URINE APPEARANCE CLEAR; URINE BILIRUBIN NEG (NEG); URINE BLOOD NEG (NEG); URINE COLOR YELLOW; URINE GLUCOSE NEG (NEG); URINE KETONE TRACE (NEG); URINE LEUKOCYTE ESTERASE NEG (NEG); URINE NITRATE NEG (NEG); URINE PH 7.5 (5-8); URINE PROTEIN NEG (NEG)
[2016-09-03 18:13] LABS: AMPHETAMINE NEG (NEG); BARBITURATES NEG (NEG); BENZODIAZEPINES NEG (NEG); COCAINE NEG (NEG); MARIJUANA NEG (NEG); OPIATES NEG (NEG); TRICYCLIC ANTIDEPRESSANTS POS (NEG); U METHADONE NEG (NEG)
[2016-09-03 18:14] LABS: CULTURE INDICATED? NO
== END 2016-09-03 21:10 | disposition home or self-care (01) ==
LOC: CED 15:28
PROVIDERS: Emergency Medicine
DX: K21.9 Gastro-esophageal reflux disease without esophagitis (principal); Z90.49 Acquired absence of other specified parts of digestive tract; Z90.89 Acquired absence of other organs; F41.9 Anxiety disorder, unspecified; Z88.5 Allergy status to narcotic agent; Z88.1 Allergy status to other antibiotic agents; Z88.8 Allergy status to other drugs, medicaments and biological substances
CPT/HCPCS: 36415; 70551; 80048; 80076; 80164; 80185; 80307; 81003; 85025; 85610; 85730; 96361; 96374; 96375; 99284; J0595; J1170; J1200; J2765

== ENCOUNTER → 2016-09-06 | Outpatient (CLI) | payer OTHER ==
[~2016-09-06] MED LIST changes: +CLIMARA 0.1 MG0.1 MG PO; +COQ-1010 MG PO; +DIVALPROEX SOD500 M1 IV; +EFFEXOR PO; +ESTRACE1 M1 PO; +FERRO-TIME325 MG PO; +HYDROCHLOROTH12.5 M1 PO; +IRON325 MG PO; +KETOROLAC15 MG/1 ML; +KLONOPIN1 M1 PO; +KLONOPIN1 MG PO; +LEVETIRACETAM500 M1 IV; +MAGNESIUM OXID200 MG PO; +MAGNESIUM27 MG PO; +MULTIVITAMINS1 EAC3 PO; +NADOLOL40 MG PO; +OXCARBAZEPINE150 M1 PO; +PANTOPRAZOLE SO40 MG PO; +PATIENT'S PHARMACY; +ROBAXIN PO; +ROBAXIN500 MG PO; +SEROQUEL50 M1 PO; +VENLAFAXINE HC150 MG PO; +VITAMIN B122500 MCG PO; +ZANAFLEX PO
== END | disposition home or self-care (01) ==
LOC: CSSDAY 15:03
PROC: 3C1ZX8Z Irrigation of Indwelling Device using Irrigating Substance, External Approach (ICD-10-PCS; principal; 2016-09-06)
DX: Z45.2 Encounter for adjustment and management of vascular access device (principal)
CPT/HCPCS: G0463

== ENCOUNTER 2016-09-07 16:36 | Observation (INO) | payer OTHER ==
--- NOTE | ~2016-09-07 | EKG ---
PATIENT: EDILSON ECHEVERRIA UNIT #: [id number] Ventricular Rate: 60 BPM Atrial Rate: 60 BPM P-R Interval: 134 ms QRS Duration: 86 ms Q-T Interval: 420 ms QTC Calculation(Bezet): 420 ms P [place]: -7 degrees Calculated R [place]: 22 degrees Calculated T [place]: 32 degrees Diagnosis Line: Normal sinus rhythm Diagnosis Line: Normal ECG Diagnosis Line: When compared with ECG of 15-AUG-2016 19:01, Diagnosis Line: No significant change was found Diagnosis Line: Confirmed by HEIDI KRAFT MD ([id number]) on Diagnosis Line: 09/08/2016 4:28:15 PM INTERPRETING MD: SWAPNIL MOLINA
--- NOTE | ~2016-09-07 | DS ---
Unit #: [id number] #: [id number] Patient: EDILSON ECHEVERRIA [id number] [address] [address] [id number] I MR#: [id number] NAME: EDILSNO ECHEVERRIA ROOM: [facility] Age: 46 Sex: F Admission Date: 09/07/2016 : 1970 Discharge Date: 09/08/2016 Attending Physician: Isabel Rivera M.D. Primary Care Physician: Deng Manuel M.D. DISCHARGE SUMMARY PRINCIPAL DIAGNOSES 1. Hypertensive urgency. 2. Recurrent migraine headache. 3. Atypical chest pain. 4. Depression with history of conversion disorder. 5. Drug seeking behavior. 6. Gastroesophageal reflux disease. 7. Obesity. CONSULTANTS None. PROCEDURES Chest x-ray on September 07, 2016 which was normal. CLINICAL HISTORY/HOSPITAL COURSE Ms. Echeverria is a 46-year-old female who presents to the emergency department with complaints of headache and chest pain. In the emergency department, she was found to have a blood pressure of 183/108. Workup with chest pain was unremarkable and patient recently had undergone a normal heart cardiac catheterization at [place]. She was subsequently placed in observation. The patient was placed on Benadryl, Dilaudid, Compazine, ultimately Toradol for her headache and her blood pressure subsequently resolved. This afternoon is still complaining of headache but is sitting in the room with the blinds open, the sun raining in and doesn't have any grimace or photophobia. I am going to give her a little bit of Dilaudid and Benadryl but I am concerned perhaps there is drug seeking behavior. She has no neurologic deficit. Again, blood pressure has returned to normal. I am not going to make any changes in her home medications. DISCHARGE CONDITION Stable. DISCHARGE STATUS Discharge to home. DISCHARGE MEDICATIONS 1. Protonix 40 mg daily. 2. Seroquel 50 mg at bedtime. 3. Trileptal 300 mg daily. Unit #: [id number] #: [id number] Patient: EDILSON ECHEVERRIA 4. Effexor 150 mg b.i.d. 5. Depakote 750 mg IV via port daily. 6. Keppra 500 mg IV b.i.d. via port. 7. Klonopin 1 mg p.o. t.i.d. p.r.n. for anxiety. 8. Nadalol 40 mg daily. 9. Magnesium at home dose daily. 10. Hydrochlorothiazide 12.5 mg daily. 11. Climara 0.1 mg, 1 mg b.i.d. 12. Lotensin 10 mg daily. 13. Ferrous sulfate 325 mg daily. 14. Co Q-10, one tablet daily. 15. Robaxin 500 mg b.i.d. 16. Zanaflex at home dose daily p.r.n. 17. Vitamin B12 difl-btz-utrdpod daily. DISCHARGE INSTRUCTIONS The patient was instructed to follow a heart healthy diet. She can increase her activity as tolerated. FOLLOWUP Patient will follow up with Dr. Manuel in one week. Dictated by... Isabel Rivera M.D. PARVIN/nicole TD: 09/10/2016 07:25 JOB #: [id number] DISCHARGE SUMMARY Page 1 of 1 X Isabel Rivera MD DISCHARGE SUMMARY
--- NOTE | ~2016-09-07 | HP ---
Unit #: [id number] #: [id number] Patient: EDILSON ECHEVERRIA [id number] [place] [id number] [facility]. [place], [place] [address] [id number] I MR#: [id number] NAME: EDILSON ECHEVERRIA. ROOM: 553 Age: 46 Sex: F Admission Date: 09/07/2016 : 1970 Attending Physician: Isabel Rivera M.D. Primary Care Physician: Deng Manuel M.D. HISTORY AND PHYSICAL CHIEF COMPLAINT Chest pain and headache. HISTORY OF PRESENT ILLNESS This is a 46-year-old female with history of complicated history with history of vertigo, extensive workup negative in the past, hypertension, gastroesophageal reflux disease, migraine, history of depression with conversion disorder. She has recurrent emergency room visits. She came in today with chief complaint of chest pain, headache which she described as episode of headache-like migraine and she was found to be with elevated blood pressure on arrival to the ER, blood pressure was 183/108. She is complaining of chest pain, also, and severe headache. She has a recent, qoo-kd-dtzuz months ago, [facility] admission for cardiac cath. It was normal, as per her, and eventually she was admitted today to rule out acute coronary syndrome and for hypertensive urgency and migraine headache. She denies fever, chills, cough, or other complaint. PAST MEDICAL HISTORY 1. History of admission in the past with vertigo with extensive workup, negative. 2. History of depression with conversion disorder. 3. Questionable history of malingering in the past. 4. History of hypertension. 5. Gastroesophageal reflux disease. 6. Migraine. 7. History of echocardiogram in the past with mild MR and TR. 8. History of EGD and colonoscopy in the past which were normal. 9. History of cholecystectomy. 10. Tonsillectomy. 11. Total abdominal hysterectomy and bilateral salpingo-oophorectomy for endometriosis 12. History of right knee arthroscope. 13. History of severe TMJ requiring jaw surgery. 14. Ankle surgery for ligament problem. 15. History of port placement. 16. History of cardiac catheterization lvu-nq-hamfr months ago at [place] and was told normal. ALLERGIES She is allergic to Avelox, penicillin, hydrocodone, tetracycline, erythromycin, IV magnesium, Imitrex, methylprednisolone, Thorazine. SOCIAL HISTORY She denies smoking. She denies alcohol. She denies illicit drug use. Unit #: [id number] #: [id number] Patient: EDILSON ECHEVERRIA HOME MEDICATIONS Is the followin. Protonix 40 mg daily 2. Seroquel 50 mg daily 3. Effexor 150 twice daily 4. Zanaflex p.o. daily 5. Robaxin 5 twice daily 6. Hydrochlorothiazide 12.5 daily 7. Keppra 500 b.i.d. 8. Nadolol 40 mg daily 9. Oxcarbazepine 300 mg daily 10. Lotensin 10 mg daily 11. Klonopin 1 mg three times a day 12. Valproic acid 750 daily 13. Ferrous sulfate 325 daily REVIEW OF SYSTEMS All review of systems negative except for history of present illness. PHYSICAL EXAMINATION GENERAL EXAMINATION: Middle-aged female lying in the bed comfortably, not in any distress. She is alert, awake, and oriented x3, comfortable, not in any distress. VITAL SIGNS: Current vitals are the following, temperature 97.9, heart rate 62, respiratory rate 16, and blood pressure 183/108. Oxygen 96%. HEENT EXAMINATION: Pupils equal reactive to light and accommodation. Head: Normocephalic and atraumatic. NECK: Supple. No jugular venous distention. HEART: S1 and S2, regular rate and rhythm. LUNGS: Clear to auscultation bilaterally. No rhonchi. No wheezing. ABDOMEN: Soft, nontender, and nondistended. Bowel sounds are positive. EXTREMITIES: Inspection normal. No cyanosis, no clubbing, and no edema. NEUROLOGIC: No focal neurologic deficit. DIAGNOSTIC STUDIES LABORATORY: Laboratory workup today is the following, troponin less than 0.05. Chemistries, sodium 132, potassium 4, chloride 99, glucose 88, BUN 17, and creatinine is 0.9. LFT within normal limits. CBC, white count 12, hemoglobin 11, hematocrit 35, platelets 243, troponin negative 0.05. She had drug screen on September 05 which was positive for TCA. IMAGING: She had MRI of brain on September 05 which was normal. ASSESSMENT/PLAN 1. Hypertension urgency, most likely secondary to migraine headache. 2. Migraine, will place the patient on Toradol and Benadryl. 3. Chest pain, will rule out myocardial infarction, will repeat cardiac enzymes in the morning. She had a cardiac cath cax-gp-eiqzg months ago at [facility] was told it was normal. 4. History of gastroesophageal reflux disease. 5. History of anxiety/depression. 6. History of conversion disorder. 7. Hypertension. 8. Anxiety. 9. DVT prophylaxis, will place the patient on SCDs. Unit #: [id number] #: [id number] Patient: EDILSON ECHEVERRIA Dictated by Melyssa Ac/flori TD: 09/08/2016 08:01 JOB #: [id number] HISTORY AND PHYSICAL Page 1 of 1 X X HISTORY AND PHYSICAL
--- NOTE | ~2016-09-07 | CR72 ---
[facility] A Service of [facility] & [facility] RADIOLOGY TEXT RESULTS PATIENT: EDILSON ECHEVERRIA LOCATION: [place] [address] : [birth year] UNIT #: [id number] AGE: [address]: Isabel Rivera MD SEX: F ORDER DR: [id number] [facility] [address] [facility]. [place], [place] [address] [id number] I MR#: [id number] Acc #: [id number] NAME: EDILSON ECHEVERRIA. : 1970 SEX: F STUDY DATE/TIME: 09/07/2016 19:08 UNIT: [facility] ROOM: 14312 STUDY DESCRIPTION: CR Chest Single View Portable Attending Physician: Praveen Dunlap M.D. Ordering Physician: Kimberly Garcia M.D. Primary Care Physician: Deng Manuel M.D. MEDICAL IMAGING REPORT This report is preliminary unless electronic signature is present EXAM Portable chest HISTORY Chronic chest pain. Shortness of air. Migraine. FINDINGS AP portable view of the chest demonstrates no acute cardiopulmonary disease. Mild elevation of the right hemidiaphragm. Indwelling venous access port noted. Heart, mediastinum unremarkable. No pneumothorax. Dictated by... Ethan Spencer M.D. THIS IS AN ELECTRONICALLY VERIFIED REPORT Ethan Spencer M.D. at 09/10/2016 6:07 AM Emeka TD: 09/07/2016 23:28 JOB #: [id number] MEDICAL IMAGING REPORT Page 1 of 1 COPY
--- NOTE | ~2016-09-07 | EKG ---
PATIENT: EDILSON ECHEVERRIA UNIT #: [id number] Ventricular Rate: 74 BPM Atrial Rate: 74 BPM P-R Interval: 140 ms QRS Duration: 82 ms Q-T Interval: 396 ms QTC Calculation(Bezet): 439 ms P [place]: -10 degrees Calculated R [place]: 41 degrees Calculated T [place]: 49 degrees Diagnosis Line: Normal sinus rhythm Diagnosis Line: Normal ECG Diagnosis Line: When compared with ECG of 07-SEP-2016 16:52, Diagnosis Line: (unconfirmed) Diagnosis Line: No significant change was found Diagnosis Line: Confirmed by YANLEI CASTORENA MD ([id number]) on Diagnosis Line: 09/08/2016 1:52:59 PM INTERPRETING MD: ANITA
[~2016-09-07 16:36] MED LIST changes: -CLIMARA 0.1 MG0.1 MG PO; -COQ-1010 MG PO; -DIVALPROEX SOD500 M1 IV; -EFFEXOR PO; -ESTRACE1 M1 PO; -FERRO-TIME325 MG PO; -HYDROCHLOROTH12.5 M1 PO; -IRON325 MG PO; -KETOROLAC15 MG/1 ML; -KLONOPIN1 M1 PO; -KLONOPIN1 MG PO; -LEVETIRACETAM500 M1 IV; -MAGNESIUM OXID200 MG PO; -MAGNESIUM27 MG PO; -MULTIVITAMINS1 EAC3 PO; -NADOLOL40 MG PO; -OXCARBAZEPINE150 M1 PO; -PANTOPRAZOLE SO40 MG PO; -PATIENT'S PHARMACY; -ROBAXIN PO; -ROBAXIN500 MG PO; -SEROQUEL50 M1 PO; -VENLAFAXINE HC150 MG PO; -VITAMIN B122500 MCG PO; -ZANAFLEX PO
[2016-09-07 18:37] LABS: POC - CKMB <1.0 ng/mL (0.0-7.9); POC - TROPONIN <0.05 ng/mL (<=0.05)
[2016-09-07 18:42] LABS: BASOPHIL# 0.1 X10e3 (0-0.3); BASOPHIL% 0.7 % (0-2.5); EOSINOPHIL# 0.6 X10e3 (0-0.7); HEMATOCRIT 35.2 % (35.0-45.0); HEMOGLOBIN 11.5 gm/dL (12.0-16.0); LYMPHOCYTE# 4.3 X10e3 (1.0-3.5); LYMPHOCYTE% 35.1 % (17.0-45.0); MEAN CELL VOLUME 84.8 FL (83-96); MEAN CORPUSCULAR HEMOGLOBIN 27.7 PG (28-34); MEAN CORPUSCULAR HGB CONC 32.7 g/dL (30-36); MEAN PLATELET VOLUME 7.6 FL (6.5-11.5); MONOCYTE# 1.2 X10e3 (0-1.0); MONOCYTE% 9.9 % (3.0-12.0); NEUTROPHIL# 6.1 X10e3 (1.5-7.1); NEUTROPHIL% 49.3 % (40-75); PLATELET COUNT 243 X10e3 (140-420); RED BLOOD COUNT 4.15 X10e (3.90-5.30); RED CELL DISTRIBUTION WIDTH 14.5 % (11.0-15.5); WHITE BLOOD COUNT 12.3 X10e3 (4.0-10.5)
[2016-09-07 18:44] LABS: DIFF IND NO
[2016-09-07 19:01] LABS: ALBUMIN SERUM 3.3 g/dL (3.5-5.0); BILIRUBIN, DIRECT 0.1 mg/dL (0.0-0.2); BILIRUBIN,INDIRECT 0.1 mg/dL (0.0-0.9); BILIRUBIN,TOTAL 0.2 mg/dL (0.2-2.0); BUN/CREATININE RATIO 18.88; CALCIUM SERUM 9.3 mg/dL (8.4-10.2); CREATININE SERUM 0.9 mg/dL (0.6-1.4); GLOM FILT RATE Estimated 77.3 mL/min (>60); PROTEIN TOTAL SERUM 7.1 g/dL (6.0-8.3)
[2016-09-07] MEDS ORDERED: KLONOPIN1 M1 PO (21:42)
[2016-09-07] MEDS ORDERED: LOTENSIN20 MG PO (21:42)
[2016-09-07] MEDS ORDERED: CLIMARA 0.1 MG0.1 MG PO (21:43)
[2016-09-07] MEDS ORDERED: DIVALPROEX SOD500 M1 IV (21:43)
[2016-09-07] MEDS ORDERED: FERRO-TIME325 MG PO (21:44)
[2016-09-07] MEDS ORDERED: HYDROCHLOROTH12.5 M1 PO (21:45)
[2016-09-07] MEDS ORDERED: LEVETIRACETAM500 M1 IV (21:45)
[2016-09-07] MEDS ORDERED: OXCARBAZEPINE150 M1 PO (21:46)
[2016-09-07] MEDS ORDERED: NADOLOL40 MG PO (21:46)
[2016-09-07] MEDS ORDERED: SEROQUEL50 M1 PO (21:47)
[2016-09-07] MEDS ORDERED: PANTOPRAZOLE SO40 MG PO (21:47)
[2016-09-07] MEDS ORDERED: VENLAFAXINE HC150 MG PO (21:48)
[2016-09-07] MEDS ORDERED: ZANAFLEX PO (21:48)
[2016-09-07] MEDS ORDERED: ROBAXIN500 MG PO (21:49)
[2016-09-07 22:09] LABS: POC - CKMB <1.0 ng/mL (0.0-7.9); POC - TROPONIN <0.05 ng/mL (<=0.05)
[2016-09-08] MEDS ORDERED: COQ-1010 MG PO (02:44)
[2016-09-08] MEDS ORDERED: VITAMIN B122500 MCG PO (02:44)
[2016-09-08] MEDS ORDERED: MAGNESIUM27 MG PO (02:45)
== END 2016-09-08 16:08 | disposition home or self-care (01) | DRG 305 ==
LOC: CED 16:36 → C5B 22:45 → CEDOF 22:45 → C5B 09-08 02:09
PROVIDERS: Emergency Medicine
DX: I16.0 Hypertensive urgency (principal); G43.909 Migraine, unspecified, not intractable, without status migrainosus; R07.89 Other chest pain; F32.9 Major depressive disorder, single episode, unspecified; Z76.5 Malingerer [conscious simulation]; K21.9 Gastro-esophageal reflux disease without esophagitis; E66.9 Obesity, unspecified; F41.9 Anxiety disorder, unspecified; Z88.0 Allergy status to penicillin; Z88.1 Allergy status to other antibiotic agents; Z88.5 Allergy status to narcotic agent; Z88.8 Allergy status to other drugs, medicaments and biological substances
CPT/HCPCS: 36415; 71010; 80048; 80076; 82550; 82553; 84484; 85025; 93005; 96374; 96375; 96376; 99285; G0378; J0360; J0780; J1170; J1200; J1642; J1885; J1953; J2060

== ENCOUNTER 2016-09-11 04:36 | Emergency (ER) | payer OTHER ==
[~2016-09-11 04:36] MED LIST changes: +CLIMARA 0.1 MG0.1 MG PO; +COQ-1010 MG PO; +DIVALPROEX SOD500 M1 IV; +FERRO-TIME325 MG PO; +HYDROCHLOROTH12.5 M1 PO; +KLONOPIN1 M1 PO; +LEVETIRACETAM500 M1 IV; +MAGNESIUM27 MG PO; +NADOLOL40 MG PO; +OXCARBAZEPINE150 M1 PO; +PANTOPRAZOLE SO40 MG PO; +ROBAXIN500 MG PO; +SEROQUEL50 M1 PO; +VENLAFAXINE HC150 MG PO; +VITAMIN B122500 MCG PO; +ZANAFLEX PO
[2016-09-11 17:10] LABS: POC - CKMB 1.1 ng/mL (0.0-7.9); POC - TROPONIN <0.05 ng/mL (<=0.05)
== END 2016-09-11 11:30 | disposition home or self-care (01) ==
LOC: CED 04:36
PROVIDERS: Physician Assistant Medical
DX: I10 Essential (primary) hypertension (principal); G43.909 Migraine, unspecified, not intractable, without status migrainosus; Z98.890 Other specified postprocedural states; Z82.49 Family history of ischemic heart disease and other diseases of the circulatory system; Z79.899 Other long term (current) drug therapy; Z88.0 Allergy status to penicillin; Z88.8 Allergy status to other drugs, medicaments and biological substances; Z88.5 Allergy status to narcotic agent; Z88.1 Allergy status to other antibiotic agents
CPT/HCPCS: 82553; 84484; 96361; 96374; 96375; 99284; J0780; J1170; J1200; J1885; J2405

== ENCOUNTER → 2016-09-13 | Outpatient (CLI) | payer OTHER ==
[~2016-09-13] MED LIST changes: +EFFEXOR PO; +ESTRACE1 M1 PO; +IRON325 MG PO; +KETOROLAC15 MG/1 ML; +KLONOPIN1 MG PO; +MAGNESIUM OXID200 MG PO; +MULTIVITAMINS1 EAC3 PO; +PATIENT'S PHARMACY; +ROBAXIN PO
== END | disposition home or self-care (01) ==
LOC: CSSDAY 09:00
PROC: 3C1ZX8Z Irrigation of Indwelling Device using Irrigating Substance, External Approach (ICD-10-PCS; principal; 2016-09-13)
DX: Z45.2 Encounter for adjustment and management of vascular access device (principal)

== ENCOUNTER 2016-09-15 14:31 | Emergency (ER) | payer OTHER ==
[~2016-09-15 14:31] MED LIST changes: -EFFEXOR PO; -ESTRACE1 M1 PO; -IRON325 MG PO; -KETOROLAC15 MG/1 ML; -KLONOPIN1 MG PO; -MAGNESIUM OXID200 MG PO; -MULTIVITAMINS1 EAC3 PO; -PATIENT'S PHARMACY; -ROBAXIN PO
[2016-09-15 17:07] LABS: BASOPHIL# 0.1 X10e3 (0-0.3); BASOPHIL% 0.9 % (0-2.5); EOSINOPHIL# 0.6 X10e3 (0-0.7); EOSINOPHIL% 6.5 % (0.0-7.0); HEMOGLOBIN 10.4 gm/dL (12.0-16.0); LYMPHOCYTE# 2.6 X10e3 (1.0-3.5); LYMPHOCYTE% 27.2 % (17.0-45.0); MEAN CELL VOLUME 86.6 FL (83-96); MEAN CORPUSCULAR HGB CONC 32.4 g/dL (30-36); MEAN PLATELET VOLUME 7.5 FL (6.5-11.5); MONOCYTE# 0.7 X10e3 (0-1.0); MONOCYTE% 7.6 % (3.0-12.0); NEUTROPHIL# 5.6 X10e3 (1.5-7.1); NEUTROPHIL% 57.8 % (40-75); PLATELET COUNT 238 X10e3 (140-420); RED CELL DISTRIBUTION WIDTH 14.4 % (11.0-15.5); WHITE BLOOD COUNT 9.7 X10e3 (4.0-10.5)
[2016-09-15 17:10] LABS: DIFF IND NO
[2016-09-15 17:27] LABS: ALBUMIN SERUM 2.9 g/dL (3.5-5.0); BILIRUBIN,TOTAL 0.2 mg/dL (0.2-2.0); CALCIUM SERUM 8.2 mg/dL (8.4-10.2); CREATININE SERUM 0.9 mg/dL (0.6-1.4); GLOM FILT RATE Estimated 77.3 mL/min (>60); POTASSIUM 4.1 mmol/L (3.5-5.1); PROTEIN TOTAL SERUM 6.3 g/dL (6.0-8.3)
== END 2016-09-15 17:36 | disposition home or self-care (01) ==
LOC: CED 14:31
PROVIDERS: Emergency Medicine
DX: G43.909 Migraine, unspecified, not intractable, without status migrainosus (principal); Z88.0 Allergy status to penicillin; Z88.5 Allergy status to narcotic agent; Z88.1 Allergy status to other antibiotic agents
CPT/HCPCS: 36415; 80053; 80164; 85025; 96361; 96374; 96375; 96376; 99284; J0780; J1100; J1200; J1885

== ENCOUNTER 2016-09-16 15:13 | Emergency (ER) | payer OTHER | END 2016-09-16 21:40 | disposition home or self-care (01) | LOC: CED 15:13 | DX: G43.909 Migraine, unspecified, not intractable, without status migrainosus (principal); F19.10 Other psychoactive substance abuse, uncomplicated; I10 Essential (primary) hypertension; K21.9 Gastro-esophageal reflux disease without esophagitis; F41.9 Anxiety disorder, unspecified; Z90.710 Acquired absence of both cervix and uterus; Z79.899 Other long term (current) drug therapy; Z88.0 Allergy status to penicillin; Z88.5 Allergy status to narcotic agent; Z88.1 Allergy status to other antibiotic agents; Z88.8 Allergy status to other drugs, medicaments and biological substances | CPT/HCPCS: 36415; 96361; 96374; 96375; 99284; J1100; J1200; J1885; J2765 ==

== ENCOUNTER → 2016-09-20 | Outpatient (CLI) | payer OTHER ==
[~2016-09-20] MED LIST changes: +EFFEXOR PO; +ESTRACE1 M1 PO; +IRON325 MG PO; +KETOROLAC15 MG/1 ML; +KLONOPIN1 MG PO; +MAGNESIUM OXID200 MG PO; +MULTIVITAMINS1 EAC3 PO; +PATIENT'S PHARMACY; +ROBAXIN PO
== END | disposition home or self-care (01) ==
LOC: CSSDAY 14:48
DX: Z45.2 Encounter for adjustment and management of vascular access device (principal)

== ENCOUNTER 2016-09-21 04:37 | Emergency (ER) | payer OTHER ==
[~2016-09-21 04:37] MED LIST changes: -EFFEXOR PO; -ESTRACE1 M1 PO; -IRON325 MG PO; -KETOROLAC15 MG/1 ML; -KLONOPIN1 MG PO; -MAGNESIUM OXID200 MG PO; -MULTIVITAMINS1 EAC3 PO; -PATIENT'S PHARMACY; -ROBAXIN PO
== END 2016-09-21 07:01 | disposition home or self-care (01) ==
LOC: CED 04:37
DX: R51 Headache (principal); I10 Essential (primary) hypertension; Z90.49 Acquired absence of other specified parts of digestive tract; Z90.710 Acquired absence of both cervix and uterus
CPT/HCPCS: 96374; 96375; 99284; J1170; J1200; J2405

== ENCOUNTER 2016-09-22 09:34 | Emergency (ER) | payer OTHER ==
--- NOTE | ~2016-09-22 | CT71 ---
[facility] A Service of [facility] RADIOLOGY TEXT RESULTS PATIENT: EDILSON ECHEVERRIA LOCATION: [facility] : 72 UNIT #: [id number] AGE: [address]: Martha Terrazas MD SEX: F ORDER DR: [id number] [facility] [address] [place], [place] [address] [id number] E MR#: [id number] Acc #: [id number] NAME: EDILSON ECHEVERRIA. : 1970 SEX: F STUDY DATE/TIME: 09/22/2016 10:33 UNIT: [facility] ROOM: STUDY DESCRIPTION: CT Head Wo Contrast Attending Physician: Martha Terrazas M.D. Ordering Physician: Martha Terrazas M.D. Primary Care Physician: Deng Manuel M.D. MEDICAL IMAGING REPORT This report is preliminary unless electronic signature is present EXAM CT scan of the head without contrast HISTORY Fell out of bed at 2:30 last night. Trauma to head. Pain. COMPARISON STUDIES 09/29/2013. TECHNIQUE Axial noncontrast images were obtained from the skull base to the vertex. This CT exam was performed with one or more of the following radiation dose reduction techniques: automatic exposure control, adjustment of mA and/or kV according to patient size, and iterative reconstruction. FINDINGS Ventricular size and configuration are normal. There is no evidence of acute infarct or hemorrhage. There are no extraaxial fluid collections. No mass lesion or mass effect is seen. There are no skull fractures. IMPRESSION Normal noncontrast head CT. Dictated by... Socrates Garcia M.D. THIS IS AN ELECTRONICALLY VERIFIED REPORT Socrates Garcia M.D. at 09/23/2016 7:02 AM FEL/pcl TD: 09/22/2016 19:39 [facility] A Service of [facility] RADIOLOGY TEXT RESULTS PATIENT: EDILSON ECHEVERRIA LOCATION: [facility] : 72 UNIT #: [id number] AGE: [address]: Martha Terrazas MD SEX: F ORDER DR: JOB #: [id number] MEDICAL IMAGING REPORT Page 1 of 1 COPY
--- NOTE | ~2016-09-22 | CR181 ---
[facility] A Service of [facility] RADIOLOGY TEXT RESULTS PATIENT: EDILSON ECHEVERRIA LOCATION: [facility] : 71 UNIT #: [id number] AGE: [address]: Martha Terrazas MD SEX: F ORDER DR: [id number] [facility] [address] [place], [place] [address] [id number] E MR#: [id number] Acc #: [id number] NAME: EDILSON ECHEVERRIA. : 1970 SEX: F STUDY DATE/TIME: 09/22/2016 10:38 UNIT: [facility] ROOM: STUDY DESCRIPTION: CR Lumbar Spine 2 or 3 Views Attending Physician: Martha Terrazas M.D. Ordering Physician: Martha Terrazas M.D. Primary Care Physician: Deng Manuel M.D. MEDICAL IMAGING REPORT This report is preliminary unless electronic signature is present EXAM Lumbar spine, 3 view series. INDICATIONS Fell out of bed today with low back pain. COMPARISON 09/29/13 FINDINGS AP and lateral projections of the lumbar segment show good mineralization of both anterior and posterior elements. They are all anatomically normal without indication of fracture, dislocation, or malignant change of a sclerotic or lytic type. There is no congenital defect noted. The sacroiliac joints are normal. IMPRESSION Normal lumbar spine. Dictated by... Socrates Garcia M.D. THIS IS AN ELECTRONICALLY VERIFIED REPORT Socrates Garcia M.D. at 09/23/2016 7:02 AM EVI/johanny TD: 09/22/2016 18:48 JOB #: [id number] [facility] A Service of [facility] RADIOLOGY TEXT RESULTS PATIENT: EDILSON ECHEVERRIA LOCATION: [facility] : 72 UNIT #: [id number] AGE: [address]: Martha Terrazas MD SEX: F ORDER DR: MEDICAL IMAGING REPORT Page 1 of 1 COPY
== END 2016-09-22 11:37 | disposition home or self-care (01) ==
LOC: CED 09:34
DX: S09.90XA Unspecified injury of head, initial encounter (principal); Z76.5 Malingerer [conscious simulation]; M54.9 Dorsalgia, unspecified; Z88.0 Allergy status to penicillin; Z88.5 Allergy status to narcotic agent; Z88.8 Allergy status to other drugs, medicaments and biological substances; Z79.899 Other long term (current) drug therapy; W18.30XA Fall on same level, unspecified, initial encounter; Y92.009 Unspecified place in unspecified non-institutional (private) residence as the place of occurrence of the external cause
CPT/HCPCS: 70450; 72100; 96374; 96375; 99284; J0780; J1200; J1885; J2405

== ENCOUNTER 2016-09-26 04:41 | Emergency (ER) | payer OTHER ==
--- NOTE | ~2016-09-26 | CT71 ---
[facility] A Service of [facility] RADIOLOGY TEXT RESULTS PATIENT: EDILSON ECHEVERRIA LOCATION: [facility] : 71 UNIT #: [id number] AGE: [address]: Maynor Walker MD SEX: F ORDER DR: [id number] [facility] [address] [place], [place] [address] [id number] E MR#: [id number] Acc #: [id number] NAME: EDILSON ECHEVERRIA : 1970 SEX: F STUDY DATE/TIME: 09/26/2016 7:57 UNIT: [facility] ROOM: STUDY DESCRIPTION: CT Head Wo Contrast Attending Physician: Maynor Walker M.D. Ordering Physician: Maynor Walker M.D. Primary Care Physician: Deng Manuel M.D. MEDICAL IMAGING REPORT This report is preliminary unless electronic signature is present EXAM Head CT no contrast, 09/26/2016 PROCEDURE Routine unenhanced head CT. This CT exam was performed with one or more of the following radiation dose reduction techniques: automatic exposure control, adjustment of mA and/or kV according to patient size, and iterative reconstruction. HISTORY Headache with photophobia and weakness today. COMPARISON Prior head CT dated 09/22/2016 FINDINGS There is no intracranial hemorrhage. There is no mass or hydrocephalus or extraaxial fluid collection. Brain parenchymal density is normal. There is mild motion degradation but allowing for this no acute abnormality is seen. The extracranial soft tissues are unremarkable. The skull base and calvaria are normal. IMPRESSION Normal negative unenhanced head CT, no change since 09/22/2016. Dictated by... Augie Stoner M.D. THIS IS AN ELECTRONICALLY VERIFIED REPORT Augie Stoner M.D. at 09/28/2016 2:17 PM TATIANA/norberto [facility] A Service of [facility] & [facility] RADIOLOGY TEXT RESULTS PATIENT: EDILSON ECHEVERRIA LOCATION: [facility] : 71 UNIT #: [id number] AGE: [address]: Maynor Walker MD SEX: F ORDER DR: TD: 09/26/2016 09:21 JOB #: [id number] MEDICAL IMAGING REPORT Page 1 of 1 COPY
[2016-09-27] MEDS ORDERED: IRON325 MG PO (17:34)
[2016-09-27] MEDS ORDERED: MAGNESIUM OXID200 MG PO (17:35)
[2016-09-27] MEDS ORDERED: PATIENT'S PHARMACY (17:35)
[2016-09-27] MEDS ORDERED: MULTIVITAMINS1 EAC3 PO (17:35)
[2016-09-27] MEDS ORDERED: HYDROCHLOROTH12.5 M1 PO (17:43)
[2016-09-27] MEDS ORDERED: ESTRACE1 M1 PO (17:43)
[2016-09-27] MEDS ORDERED: KETOROLAC15 MG/1 ML (17:44)
[2016-09-27] MEDS ORDERED: LOTENSIN20 MG PO (17:44)
[2016-09-27] MEDS ORDERED: EFFEXOR PO (17:45)
[2016-09-27] MEDS ORDERED: ROBAXIN PO (17:45)
[2016-09-27] MEDS ORDERED: SEROQUEL50 M1 PO (17:46)
[2016-09-27] MEDS ORDERED: KLONOPIN1 MG PO (17:46)
== END 2016-09-26 09:22 | disposition home or self-care (01) ==
LOC: CED 04:41
DX: R51 Headache (principal); I10 Essential (primary) hypertension; F41.9 Anxiety disorder, unspecified; K21.9 Gastro-esophageal reflux disease without esophagitis; Z90.710 Acquired absence of both cervix and uterus; Z90.79 Acquired absence of other genital organ(s); Z88.0 Allergy status to penicillin; Z88.5 Allergy status to narcotic agent; Z88.1 Allergy status to other antibiotic agents; Z79.899 Other long term (current) drug therapy
CPT/HCPCS: 70450; 96361; 96374; 96375; 99284; J1100; J1200; J1885; J2060; J2550

== ENCOUNTER 2016-09-27 15:42 | Emergency (ER) | payer OTHER ==
--- NOTE | ~2016-09-27 | EKG ---
PATIENT: EDILSON ECHEVERRIA UNIT #: [id number] Ventricular Rate: 71 BPM Atrial Rate: 71 BPM P-R Interval: 140 ms QRS Duration: 88 ms Q-T Interval: 408 ms QTC Calculation(Bezet): 443 ms P [place]: 21 degrees Calculated R [place]: 53 degrees Calculated T [place]: 45 degrees Diagnosis Line: Normal sinus rhythm Diagnosis Line: Normal ECG Diagnosis Line: Diagnosis Line: Confirmed by BENNETT JARRELL MD ([id number]) on 09/27/2016 Diagnosis Line: 6:59:59 PM INTERPRETING MD: WESLY MOLINA
--- NOTE | ~2016-09-27 | CT71 ---
[facility] A Service of [facility] RADIOLOGY TEXT RESULTS PATIENT: EDILSON ECHEVERRIA LOCATION: [facility] : 72 UNIT #: [id number] AGE: [address]: Radha Reed MD SEX: F ORDER DR: [id number] [facility] [address] [place], [place] [address] [id number] E MR#: [id number] Acc #: [id number] NAME: EDILSON ECHEVERRIA : 1970 SEX: F STUDY DATE/TIME: 09/27/2016 18:33 UNIT: [facility] ROOM: STUDY DESCRIPTION: CT Head Wo Contrast Attending Physician: Radha Reed M.D. Referring Physician: Deng Manuel M.D. Ordering Physician: Radha Reed M.D. Primary Care Physician: Deng Manuel M.D. MEDICAL IMAGING REPORT This report is preliminary unless electronic signature is present EXAM CT head without contrast, 09/27/16 HISTORY 46-year-old female with headache beginning today. COMPARISON CT head 09/26/16 TECHNIQUE Routine unenhanced axial images performed through the brain. This CT exam was performed with one or more of the following radiation dose reduction techniques: Automatic exposure control, adjustment of mA and/or kV according to patient size, and iterative reconstruction. FINDINGS No hemorrhage, acute infarction, mass lesion, or abnormal extraaxial fluid collection. No midline shift or focal mass effect. Ventricular system normal in size and configuration. No acute bony abnormality. Visualized paranasal sinuses and mastoid air cells are clear. IMPRESSION Negative unenhanced head CT. No change from head CTs performed 09/22/16 and 09/26/16. Dictated by... Rahul Nicholas M.D. THIS IS AN ELECTRONICALLY VERIFIED REPORT Rahul Nicholas M.D. at 09/28/2016 9:11 AM ANIBAL/brayden [facility] A Service [facility] RADIOLOGY TEXT RESULTS PATIENT: EDILSON ECHEVERRIA LOCATION: [facility] : 72 UNIT #: [id number] AGE: [address]: Radha Reed MD SEX: F ORDER DR: TD: 09/27/2016 21:57 JOB #: [id number] MEDICAL IMAGING REPORT Page 1 of 1 COPY
[~2016-09-27 15:42] MED LIST changes: -EFFEXOR PO; -ESTRACE1 M1 PO; -IRON325 MG PO; -KETOROLAC15 MG/1 ML; -KLONOPIN1 MG PO; -MAGNESIUM OXID200 MG PO; -MULTIVITAMINS1 EAC3 PO; -PATIENT'S PHARMACY; -ROBAXIN PO
[2016-09-27] MEDS ORDERED: IRON325 MG PO (17:34)
[2016-09-27] MEDS ORDERED: PATIENT'S PHARMACY (17:35)
[2016-09-27] MEDS ORDERED: MULTIVITAMINS1 EAC3 PO (17:35)
[2016-09-27] MEDS ORDERED: MAGNESIUM OXID200 MG PO (17:35)
[2016-09-27] MEDS ORDERED: HYDROCHLOROTH12.5 M1 PO (17:43)
[2016-09-27] MEDS ORDERED: ESTRACE1 M1 PO (17:43)
[2016-09-27] MEDS ORDERED: LOTENSIN20 MG PO (17:44)
[2016-09-27] MEDS ORDERED: KETOROLAC15 MG/1 ML (17:44)
[2016-09-27] MEDS ORDERED: ROBAXIN PO (17:45)
[2016-09-27] MEDS ORDERED: EFFEXOR PO (17:45)
[2016-09-27 17:46] LABS: POC - CKMB <1.0 ng/mL (0.0-7.9); POC - TROPONIN <0.05 ng/mL (<=0.05)
[2016-09-27] MEDS ORDERED: SEROQUEL50 M1 PO (17:46)
[2016-09-27] MEDS ORDERED: KLONOPIN1 MG PO (17:46)
[2016-09-27 17:59] LABS: BASOPHIL# 0.1 X10e3 (0-0.3); BASOPHIL% 0.4 % (0-2.5); EOSINOPHIL# 0.4 X10e3 (0-0.7); EOSINOPHIL% 2.1 % (0.0-7.0); HEMATOCRIT 33.8 % (35.0-45.0); HEMOGLOBIN 11.1 gm/dL (12.0-16.0); LYMPHOCYTE# 7.7 X10e3 (1.0-3.5); LYMPHOCYTE% 44.8 % (17.0-45.0); MEAN CELL VOLUME 85.2 FL (83-96); MEAN CORPUSCULAR HEMOGLOBIN 27.9 PG (28-34); MEAN CORPUSCULAR HGB CONC 32.7 g/dL (30-36); MEAN PLATELET VOLUME 7.5 FL (6.5-11.5); MONOCYTE# 1.7 X10e3 (0-1.0); MONOCYTE% 10.1 % (3.0-12.0); NEUTROPHIL# 7.3 X10e3 (1.5-7.1); NEUTROPHIL% 42.6 % (40-75); PLATELET COUNT 270 X10e3 (140-420); RED BLOOD COUNT 3.97 X10e (3.90-5.30); RED CELL DISTRIBUTION WIDTH 14.5 % (11.0-15.5); WHITE BLOOD COUNT 17.2 X10e3 (4.0-10.5)
[2016-09-27 18:04] LABS: DIFF IND YES
[2016-09-27 18:10] LABS: INR 0.9; PROTHROMBIN TIME (PATIENT) 9.4 SECONDS (9.6-11.5)
[2016-09-27 18:13] LABS: PLATELET ESTIMATE NORMAL (NORMAL)
[2016-09-27 18:20] LABS: BUN/CREATININE RATIO 27.14; CALCIUM SERUM 8.9 mg/dL (8.4-10.2); CREATININE SERUM 0.7 mg/dL (0.6-1.4); GLOM FILT RATE Estimated 104.6 mL/min (>60); POTASSIUM 4.2 mmol/L (3.5-5.1)
== END 2016-09-27 21:00 | disposition home or self-care (01) ==
LOC: CED 15:42
PROVIDERS: Emergency Medicine
DX: R51 Headache (principal); Z88.0 Allergy status to penicillin; Z88.5 Allergy status to narcotic agent; Z88.1 Allergy status to other antibiotic agents; Z79.899 Other long term (current) drug therapy
CPT/HCPCS: 36415; 70450; 80048; 82553; 84484; 85025; 85610; 93005; 96361; 96374; 96375; 96376; 99284; J0780; J1170; J1200

== ENCOUNTER → 2016-09-27 | Outpatient (CLI) | payer OTHER ==
[~2016-09-27] MED LIST changes: +EFFEXOR PO; +ESTRACE1 M1 PO; +IRON325 MG PO; +KETOROLAC15 MG/1 ML; +KLONOPIN1 MG PO; +MAGNESIUM OXID200 MG PO; +MULTIVITAMINS1 EAC3 PO; +PATIENT'S PHARMACY; +ROBAXIN PO
== END | disposition home or self-care (01) ==
LOC: CSSDAY 15:00
PROC: 3C1ZX8Z Irrigation of Indwelling Device using Irrigating Substance, External Approach (ICD-10-PCS; principal; 2016-09-27)
DX: Z45.2 Encounter for adjustment and management of vascular access device (principal)
CPT/HCPCS: J1642

== ENCOUNTER 2016-10-04 07:56 | Emergency (ER) | payer OTHER | END 2016-10-04 10:41 | disposition home or self-care (01) | LOC: CED 07:56 | DX: G43.909 Migraine, unspecified, not intractable, without status migrainosus (principal); I10 Essential (primary) hypertension; F32.9 Major depressive disorder, single episode, unspecified; Z90.710 Acquired absence of both cervix and uterus; Z90.49 Acquired absence of other specified parts of digestive tract; Z86.73 Personal history of transient ischemic attack (TIA), and cerebral infarction without residual deficits; Z79.899 Other long term (current) drug therapy; Z88.0 Allergy status to penicillin; Z88.5 Allergy status to narcotic agent; Z88.1 Allergy status to other antibiotic agents; Z88.8 Allergy status to other drugs, medicaments and biological substances | CPT/HCPCS: 96361; 96365; 96375; 99284; J0780; J1100; J1200; J1885 ==

== ENCOUNTER → 2016-10-04 | Outpatient (CLI) | payer OTHER ==
[~2016-10-04] MED LIST changes: +EFFEXOR PO; +ESTRACE1 M1 PO; +IRON325 MG PO; +KETOROLAC15 MG/1 ML; +KLONOPIN1 MG PO; +MAGNESIUM OXID200 MG PO; +MULTIVITAMINS1 EAC3 PO; +PATIENT'S PHARMACY; +ROBAXIN PO
--- NOTE | ~2016-10-04 | XA77 ---
[facility] A Service of [facility] & [facility] RADIOLOGY TEXT RESULTS PATIENT: EDILSON STAUFFER LOCATION: [facility] : 72 UNIT #: [id number] AGE: [address]: HAIDER MOLINA MD SEX: F ORDER DR: [id number] [facility] [address] [place], [place] [address] [id number] O MR#: [id number] Acc #: [id number] NAME: EDILSON STAUFFER. : 1970 SEX: F STUDY DATE/TIME: 10/04/2016 11:04 UNIT: [facility] ROOM: STUDY DESCRIPTION: XA CVC Port Devive Check Attending Physician: Haider Molina M.D. Referring Physician: Haider Molina M.D. Ordering Physician: Haider Molina M.D. Primary Care Physician: Haider Molina M.D. MEDICAL IMAGING REPORT This report is preliminary unless electronic signature is present EXAM Port device check INDICATION Ms. Stauffer is a 46-year-old lady with a right internal jugular vein MediPort. She reports the port had no blood return when it was accessed today for treatment of a migraine. FINDINGS Port was accessed by the IVR nurse. At time it was found to flush and aspirate. It did appear to be appropriately positioned within the superior vena cava. I subsequently performed catheter gram which showed a fibrin sheath around the distal aspect of the catheter which is likely impairing its function. At this point the patient will be referred for tPA infusion. Total fluoroscopy time was 0.3 minutes. AK was 8 mGy. IMPRESSION Patient's MediPort does appear to have a fibrin sheath around its tip. We will plan on tPA infusion to see if this improves flow through the catheter. Dictated by... Chary Mobley M.D. THIS IS AN ELECTRONICALLY VERIFIED REPORT Chary Mobley M.D. at 10/12/2016 3:25 PM VELASQUEZ/norberto TD: 10/12/2016 08:01 JOB #: [id number] MEDICAL IMAGING REPORT Page 1 of 1 COPY
== END | disposition home or self-care (01) ==
LOC: CIVR 10:53
DX: T82.868A Thrombosis due to vascular prosthetic devices, implants and grafts, initial encounter (principal)
CPT/HCPCS: J1885; J2997; Q9967

== ENCOUNTER 2016-10-08 17:20 | Emergency (ER) | payer OTHER | END 2016-10-08 23:45 | disposition home or self-care (01) | LOC: CED 17:20 | DX: R51 Headache (principal); R11.2 Nausea with vomiting, unspecified; Z76.5 Malingerer [conscious simulation]; K21.9 Gastro-esophageal reflux disease without esophagitis; I10 Essential (primary) hypertension; F41.9 Anxiety disorder, unspecified; Z79.899 Other long term (current) drug therapy; Z88.0 Allergy status to penicillin; Z88.5 Allergy status to narcotic agent; Z88.1 Allergy status to other antibiotic agents | CPT/HCPCS: 99284 ==

== ENCOUNTER → 2016-10-11 | Outpatient (CLI) | payer OTHER | END | disposition home or self-care (01) | LOC: CSSDAY 15:00 | DX: Z45.2 Encounter for adjustment and management of vascular access device (principal) | CPT/HCPCS: G0463 ==

== ENCOUNTER 2016-10-15 05:04 | Emergency (ER) | payer OTHER ==
[2016-10-15 06:25] LABS: BASOPHIL# 0.1 X10e3 (0-0.3); EOSINOPHIL# 0.7 X10e3 (0-0.7); EOSINOPHIL% 6.4 % (0.0-7.0); HEMATOCRIT 35.4 % (35.0-45.0); HEMOGLOBIN 11.3 gm/dL (12.0-16.0); LYMPHOCYTE# 4.5 X10e3 (1.0-3.5); LYMPHOCYTE% 39.4 % (17.0-45.0); MEAN CELL VOLUME 85.4 FL (83-96); MEAN CORPUSCULAR HEMOGLOBIN 27.2 PG (28-34); MEAN CORPUSCULAR HGB CONC 31.8 g/dL (30-36); MEAN PLATELET VOLUME 7.3 FL (6.5-11.5); MONOCYTE# 1.1 X10e3 (0-1.0); MONOCYTE% 9.2 % (3.0-12.0); NEUTROPHIL# 5.1 X10e3 (1.5-7.1); PLATELET COUNT 262 X10e3 (140-420); RED BLOOD COUNT 4.14 X10e (3.90-5.30); RED CELL DISTRIBUTION WIDTH 14.4 % (11.0-15.5); WHITE BLOOD COUNT 11.6 X10e3 (4.0-10.5)
[2016-10-15 06:37] LABS: DIFF IND NO
[2016-10-15 06:43] LABS: INR 0.9; PARTIAL THROMBOPLASTIN TIME 24.2 SECONDS (23.5-31.3)
[2016-10-15 07:00] LABS: ALBUMIN SERUM 2.9 g/dL (3.5-5.0); ALKALINE PHOSPHATASE 65 U/L (32-92); ALT (SGPT) 19 U/L (10-40); AST (SGOT) 19 U/L (10-42); BLOOD UREA NITROGEN 24 mg/dL (9-23); BUN/CREATININE RATIO 26.66; CARBON DIOXIDE 26 mmol/L (22-31); CHLORIDE 98 mmol/L (100-111); CREATININE SERUM 0.9 mg/dL (0.6-1.4); GLOM FILT RATE Estimated 77.3 mL/min (>60); GLUCOSE FASTING 103 mg/dL (70-110); PROTEIN TOTAL SERUM 6.5 g/dL (6.0-8.3); SODIUM 135 mmol/L (135-145)
[2016-10-15 07:02] LABS: BILIRUBIN, DIRECT <0.1 mg/dL (0.0-0.2); BILIRUBIN,TOTAL <0.1 mg/dL (0.2-2.0)
== END 2016-10-15 07:18 | disposition home or self-care (01) ==
LOC: CED 05:04
PROVIDERS: Nurse Practitioner
DX: Z76.5 Malingerer [conscious simulation] (principal); I10 Essential (primary) hypertension; K21.9 Gastro-esophageal reflux disease without esophagitis; Z90.49 Acquired absence of other specified parts of digestive tract; Z90.710 Acquired absence of both cervix and uterus; Z88.0 Allergy status to penicillin; Z88.5 Allergy status to narcotic agent; Z79.899 Other long term (current) drug therapy
CPT/HCPCS: 36415; 80048; 80076; 80164; 85025; 85610; 85730; 96361; 96374; 96375; 99284; J0780; J1200; J1885; J2405

== ENCOUNTER → 2016-10-18 | Outpatient (CLI) | payer OTHER | END | disposition home or self-care (01) | LOC: CSSDAY 15:00 | PROC: 3C1ZX8Z Irrigation of Indwelling Device using Irrigating Substance, External Approach (ICD-10-PCS; principal; 2016-10-18) | DX: Z45.2 Encounter for adjustment and management of vascular access device (principal) | CPT/HCPCS: G0463; J1642 ==

== ENCOUNTER 2016-10-19 21:30 | Emergency (ER) | payer OTHER ==
--- NOTE | ~2016-10-19 | CR72 ---
[facility] A Service of [facility] & [facility] RADIOLOGY TEXT RESULTS PATIENT: EDILSON ECHEVERRIA LOCATION: [facility] : 72 UNIT #: [id number] AGE: [address]: Martha Terrazas MD SEX: F ORDER DR: [id number] [facility] [address] [place], [place] [address] [id number] E MR#: [id number] Acc #: [id number] NAME: EDILSON ECHEVERRIA. : 1970 SEX: F STUDY DATE/TIME: 10/19/2016 22:41 UNIT: [facility] ROOM: STUDY DESCRIPTION: CR Chest Single View Portable Attending Physician: Martha Terrazas M.D. Ordering Physician: Martha Terrazas M.D. Primary Care Physician: Deng Manuel M.D. MEDICAL IMAGING REPORT This report is preliminary unless electronic signature is present EXAM Single view chest. INDICATION Single portable AP view of the chest compared to 08/09/2016. Right chest wall port is unchanged. Heart and mediastinal contours are normal. Lungs are clear. There is slight elevation of the right hemidiaphragm, unchanged. IMPRESSION No acute cardiopulmonary findings. Dictated by... Markell Best M.D. THIS IS AN ELECTRONICALLY VERIFIED REPORT Markell Best M.D. at 10/21/2016 1:03 AM ALVIN/roly TD: 10/20/2016 14:33 JOB #: [id number] MEDICAL IMAGING REPORT Page 1 of 1 COPY
--- NOTE | ~2016-10-19 | US140 ---
[facility] A Service of [facility] & [facility] RADIOLOGY TEXT RESULTS PATIENT: EDILSON ECHEVERRIA LOCATION: [facility] : 72 UNIT #: [id number] AGE: [address]: Martha Terrazas MD SEX: F ORDER DR: [id number] [facility] [address] [place], [place] [address] [id number] MR#: [id number] Acc #: [id number] NAME: EDILSON ECHEVERRIA. : 1970 SEX: F STUDY DATE/TIME: 10/20/2016 0:06 UNIT: [facility] ROOM: STUDY DESCRIPTION: UE Veins Unilat or Ltd Stdy Attending Physician: Martha Terrazas M.D. Ordering Physician: Martha Terrazas M.D. Primary Care Physician: Deng Manuel M.D. MEDICAL IMAGING REPORT This report is preliminary unless electronic signature is present EXAM Ultrasound upper extremity, unilateral/or limited study. INDICATIONS Right arm pain and right arm tingling. Recent port placement. COMPARISON None available. FINDINGS No deep vein thrombus is identified in the right upper extremity. The right internal jugular vein, subclavian vein, axillary vein, and brachial vein are widely patent. No superficial venous thrombus. IMPRESSION Negative right upper extremity deep vein thrombosis. Dictated by... Markell Best M.D. THIS IS AN ELECTRONICALLY VERIFIED REPORT Markell Best M.D. at 10/21/2016 1:01 AM ALVIN/johanny TD: 10/20/2016 15:48 JOB #: [id number] MEDICAL IMAGING REPORT Page 1 of 1 COPY
== END 2016-10-20 01:05 | disposition home or self-care (01) ==
LOC: CED 21:30
DX: M79.601 Pain in right arm (principal); Z76.5 Malingerer [conscious simulation]; Z88.0 Allergy status to penicillin; Z88.5 Allergy status to narcotic agent; Z88.1 Allergy status to other antibiotic agents; Z88.8 Allergy status to other drugs, medicaments and biological substances
CPT/HCPCS: 71010; 93971; 99284

== ENCOUNTER 2016-10-25 04:43 | Emergency (ER) | payer OTHER | END 2016-10-25 05:50 | disposition home or self-care (01) | LOC: CED 04:43 | DX: G43.909 Migraine, unspecified, not intractable, without status migrainosus (principal); I10 Essential (primary) hypertension; Z90.49 Acquired absence of other specified parts of digestive tract; Z90.89 Acquired absence of other organs; Z88.0 Allergy status to penicillin; Z88.5 Allergy status to narcotic agent; Z79.899 Other long term (current) drug therapy | CPT/HCPCS: 96374; 96375; 99283; J1170; J1200; J2765 ==

== ENCOUNTER → 2016-10-25 | Outpatient (CLI) | payer OTHER | END | disposition home or self-care (01) | LOC: CSSDAY 09:00 | DX: Z45.2 Encounter for adjustment and management of vascular access device (principal) ==

== ENCOUNTER 2016-10-28 04:34 | Emergency (ER) | payer OTHER | END 2016-10-28 06:53 | disposition home or self-care (01) | LOC: CED 04:34 | DX: R51 Headache (principal); G89.29 Other chronic pain; I10 Essential (primary) hypertension; Z90.49 Acquired absence of other specified parts of digestive tract; Z90.710 Acquired absence of both cervix and uterus; Z76.5 Malingerer [conscious simulation]; Z88.0 Allergy status to penicillin; Z88.5 Allergy status to narcotic agent; Z88.1 Allergy status to other antibiotic agents; Z79.899 Other long term (current) drug therapy | CPT/HCPCS: 96361; 96374; 96375; 99284; J1200; J1885; J2765 ==

== ENCOUNTER → 2016-11-01 | Outpatient (CLI) | payer OTHER | END | disposition home or self-care (01) | LOC: CSSDAY 09:30 | PROC: 3C1ZX8Z Irrigation of Indwelling Device using Irrigating Substance, External Approach (ICD-10-PCS; principal; 2016-11-01) | DX: Z45.2 Encounter for adjustment and management of vascular access device (principal) | CPT/HCPCS: G0463 ==

== ENCOUNTER 2016-11-04 05:53 | Emergency (ER) | payer OTHER ==
[~2016-11-04] VITALS: Ht 170.2 cm; Wt 110.2 kg
== END 2016-11-04 09:47 | disposition home or self-care (01) ==
LOC: CED 05:53
DX: G43.909 Migraine, unspecified, not intractable, without status migrainosus (principal); F41.9 Anxiety disorder, unspecified; Z90.49 Acquired absence of other specified parts of digestive tract; Z88.0 Allergy status to penicillin; Z88.5 Allergy status to narcotic agent; Z88.1 Allergy status to other antibiotic agents; Z79.899 Other long term (current) drug therapy
CPT/HCPCS: 96374; 96375; 99283; J1200; J1885; J2550

== ENCOUNTER 2016-11-07 05:03 | Emergency (ER) | payer OTHER | END 2016-11-07 07:08 | disposition home or self-care (01) | LOC: CED 05:03 | DX: G43.909 Migraine, unspecified, not intractable, without status migrainosus (principal); Z79.899 Other long term (current) drug therapy; Z88.0 Allergy status to penicillin; Z88.1 Allergy status to other antibiotic agents; Z88.5 Allergy status to narcotic agent | CPT/HCPCS: 96361; 96374; 96375; 99283; J0780; J1200; J1642; J1885 ==

== ENCOUNTER 2016-11-08 15:32 | Emergency (ER) | payer OTHER ==
--- NOTE | ~2016-11-08 | EKG ---
PATIENT: EDILSON ECHEVERRIA UNIT #: [id number] Ventricular Rate: 62 BPM Atrial Rate: 62 BPM P-R Interval: 124 ms QRS Duration: 82 ms Q-T Interval: 434 ms QTC Calculation(Bezet): 440 ms P [place]: 0 degrees Calculated R [place]: 45 degrees Calculated T [place]: 48 degrees Diagnosis Line: Normal sinus rhythm Diagnosis Line: Normal ECG Diagnosis Line: When compared with ECG of 27-SEP-2016 17:30, Diagnosis Line: No significant change was found Diagnosis Line: Confirmed by MARYJANE ESPOSITO MD ([id number]) on Diagnosis Line: 11/09/2016 7:33:21 AM INTERPRETING MD: VAIBHAV MOLINA
== END 2016-11-08 21:00 | disposition home or self-care (01) ==
LOC: CED 15:32
DX: R51 Headache (principal); R07.89 Other chest pain; G89.29 Other chronic pain; Z79.899 Other long term (current) drug therapy; Z88.5 Allergy status to narcotic agent; Z88.0 Allergy status to penicillin; Z88.1 Allergy status to other antibiotic agents; Z88.8 Allergy status to other drugs, medicaments and biological substances
CPT/HCPCS: 93005; 96374; 96375; 99284; J1200; J1885; J2765

== ENCOUNTER → 2016-11-08 | Outpatient (CLI) | payer OTHER | END | disposition home or self-care (01) | LOC: CSSDAY 10:00 | PROC: 3C1ZX8Z Irrigation of Indwelling Device using Irrigating Substance, External Approach (ICD-10-PCS; principal; 2016-11-08) | DX: Z45.2 Encounter for adjustment and management of vascular access device (principal) ==

== ENCOUNTER → 2016-11-15 | Outpatient (CLI) | payer OTHER | END | disposition home or self-care (01) | LOC: CSSDAY 14:27 | DX: Z45.2 Encounter for adjustment and management of vascular access device (principal) | CPT/HCPCS: G0463; J1642 ==

== ENCOUNTER → 2016-11-22 | Outpatient (CLI) | payer OTHER | END | disposition home or self-care (01) | LOC: CSSDAY 13:21 | DX: Z45.2 Encounter for adjustment and management of vascular access device (principal) ==

== ENCOUNTER 2016-11-29 04:45 | Emergency (ER) | payer OTHER ==
[~2016-11-29] VITALS: Ht 170.2 cm; Wt 111.1 kg
== END 2016-11-29 07:30 | disposition home or self-care (01) ==
LOC: CED 04:45
DX: G43.909 Migraine, unspecified, not intractable, without status migrainosus (principal); I10 Essential (primary) hypertension; Z90.710 Acquired absence of both cervix and uterus; Z88.0 Allergy status to penicillin; Z88.5 Allergy status to narcotic agent; Z88.1 Allergy status to other antibiotic agents; Z79.899 Other long term (current) drug therapy
CPT/HCPCS: 96361; 96374; 96375; 99284; J1200; J1885; J2765

== ENCOUNTER → 2016-11-29 | Outpatient (CLI) | payer OTHER | END | disposition home or self-care (01) | LOC: CSSDAY 14:51 | PROC: 3C1ZX8Z Irrigation of Indwelling Device using Irrigating Substance, External Approach (ICD-10-PCS; principal; 2016-11-29) | DX: Z45.2 Encounter for adjustment and management of vascular access device (principal) ==

== ENCOUNTER → 2016-12-06 | Outpatient (CLI) | payer OTHER | END | disposition home or self-care (01) | LOC: CSSDAY 15:00 | PROC: 3C1ZX8Z Irrigation of Indwelling Device using Irrigating Substance, External Approach (ICD-10-PCS; principal; 2016-12-06) | DX: Z45.2 Encounter for adjustment and management of vascular access device (principal) | CPT/HCPCS: G0463; J1642 ==

== ENCOUNTER 2016-12-15 15:52 | Emergency (ER) | payer OTHER ==
[~2016-12-15] VITALS: Ht 170.2 cm; Wt 109.8 kg
== END 2016-12-15 18:00 | disposition home or self-care (01) ==
LOC: CED 15:52
DX: R51 Headache (principal); Z88.0 Allergy status to penicillin; Z88.8 Allergy status to other drugs, medicaments and biological substances; Z88.1 Allergy status to other antibiotic agents
CPT/HCPCS: 96361; 96374; 96375; 99284; J0780; J1200; J1885

== ENCOUNTER → 2016-12-20 | Outpatient (CLI) | payer OTHER | END | disposition home or self-care (01) | LOC: CSSDAY 12:30 | PROC: 3C1ZX8Z Irrigation of Indwelling Device using Irrigating Substance, External Approach (ICD-10-PCS; principal; 2016-12-20) | DX: Z45.2 Encounter for adjustment and management of vascular access device (principal) | CPT/HCPCS: J1642 ==

== ENCOUNTER → 2016-12-27 | Outpatient (CLI) | payer OTHER | END | disposition home or self-care (01) | LOC: CSSDAY 15:00 | PROC: 3C1ZX8Z Irrigation of Indwelling Device using Irrigating Substance, External Approach (ICD-10-PCS; principal; 2016-12-27) | DX: Z45.2 Encounter for adjustment and management of vascular access device (principal) | CPT/HCPCS: J1642 ==

== ENCOUNTER 2017-01-03 15:27 | Emergency (ER) | payer OTHER ==
[~2017-01-03] VITALS: Ht 170.2 cm; Wt 110.2 kg
== END 2017-01-03 20:16 | disposition home or self-care (01) ==
LOC: CED 15:27
DX: R51 Headache (principal); F32.9 Major depressive disorder, single episode, unspecified; Z88.0 Allergy status to penicillin; Z88.5 Allergy status to narcotic agent; Z88.1 Allergy status to other antibiotic agents; Z88.8 Allergy status to other drugs, medicaments and biological substances
CPT/HCPCS: 96361; 96365; 96375; 96376; 99284; J1100; J1200; J1642; J1885; J2765

== ENCOUNTER → 2017-01-03 | Outpatient (CLI) | payer OTHER | END | disposition home or self-care (01) | LOC: CSSDAY 15:00 | DX: Z45.2 Encounter for adjustment and management of vascular access device (principal) | CPT/HCPCS: J1642 ==